=== PATIENT | male | born 1940 | race Hispanic/Latino ===

== ENCOUNTER 2017-02-07 13:17 | Observation (INO) | payer MEDICARE, BC ==
[2017-02-07 13:32] VITALS: BMI 24.8
--- NOTE | 2017-02-07 14:07 | ED PDOC ---
Arrival/HPI - General Chief Complaint: Chest Pain Time Seen by Provider: 02/07/17 13:40 Historian: Patient - History of Present Illness Narrative History of Present Illness (Text): 02/07/17 14:03 A 77 year old male with hypertension on Metoprolol, CAD with 3 stents, [place] and acid reflux on Protonix, presents to the emergency department complaining of chest heaviness since 07:00 this morning. Patient reports he woke up with the pain and has been experiencing intermittently since. Patient denies any fever, nausea, vomiting, diarrhea, abdominal pain, shortness of breath or any other complaints. Patient regularly takes Aspirin. PMD: Dr. Shearer Echocardiograph Tech: Dr. Whitlock Time/Duration: Other (07:00 this morning) Symptom Course: Unchanged Quality: Other Context: Home Past Medical History - Provider Review Nursing Documentation Reviewed: Yes - Past History Past History: No Previous - Infectious Disease Hx of Infectious Diseases: None - Tetanus Immunization Tetanus Immunization: Unknown - Cardiac Hx Hypertension: Yes Hx Pacemaker: No - Pulmonary Hx Respiratory Disorders: No - Neurological Hx Paralysis: No - HEENT Hx HEENT Disorder: No - Renal Hx Renal Disorder: No - Endocrine/Metabolic Hx Endocrine Disorders: No - Hematological/Oncological Hx Blood Transfusions: No Hx Blood Transfusion Reaction: No - Integumentary Hx Dermatological Disorder: No Other/Comment: dry skin patches b/l legs, scratch fan lle - Musculoskeletal/Rheumatological Hx Musculoskeletal Disorders: Yes (PAST HX BULGING DISC,HERNIATED DISC) - Gastrointestinal Hx Gastrointestinal Disorders: Yes Hx Diverticulitis: Yes Hx Gastroesophageal Reflux: Yes Other/Comment: polyp removed pt does not know from where - Genitourinary/Gynecological Hx Genitourinary Disorders: No - Psychiatric Hx Emotional Abuse: No Hx Physical Abuse: No Hx Substance Use: No - Surgical History Hx Appendectomy: Yes Hx Cardiac Catheterization: Yes Hx Cholecystectomy: Yes Hx Coronary Stent: Yes (x 3) - Anesthesia Hx Anesthesia Reactions: No Hx Malignant Hyperthermia: No - Suicidal Assessment Feels Threatened In Home Enviroment: No Family/Social History - Physician Review Nursing Documentation Reviewed: Yes Family/Social History: No Known Family HX Smoking Status: Never Smoked Hx Alcohol Use: No Hx Substance Use: No Hx Substance Use Treatment: No Allergies/Home Meds Allergies/Adverse Reactions: Allergies pantoprazole sodium [From Protonix] Allergy (Verified 02/07/17 13:31) ANAPHYLAXIS Home Medications: Home Meds Medication Instructions Recorded Confirmed Alprazolam [Xanax] 1 mg PO TID 05/01/12 02/07/17 Aspirin [Aspir 81] 81 mg PO DAILY 05/01/12 02/07/17 Atorvastatin [Lipitor] 10 mg PO HS 05/01/12 02/07/17 Metoprolol Tartrate 50 mg PO BID 08/08/16 02/07/17 Sucralfate [Carafate] 1 gm PO TID 08/08/16 02/07/17 Review of Systems - Physician Review All systems were reviewed & negative as marked: Yes - Review of Systems Constitutional: absent: Fevers Respiratory: absent: SOB Cardiovascular: Chest Pain (Chest heaviness) Gastrointestinal: absent: Abdominal Pain, Diarrhea, Nausea, Vomiting Physical Exam Vital Signs Temp Pulse Resp BP Pulse Ox 02/07/17 18:50 71 16 174/91 H 98 02/07/17 16:30 60 15 162/81 H 97 02/07/17 13:29 97.3 F L 68 18 132/88 98 Temperature: Afebrile Blood Pressure: Normal Pulse: Regular Respiratory Rate: Normal Appearance: Positive for: Well-Appearing, Non-Toxic, Comfortable Pain Distress: None Mental Status: Positive for: Alert and Oriented X 3 - Systems Exam Head: Present: Atraumatic, Normocephalic Pupils: Present: PERRL Extroacular Muscles: Present: EOMI Conjunctiva: Present: Normal Mouth: Present: Moist Mucous Membranes Neck: Present: Normal Range of Motion Respiratory/Chest: Present: Clear to Auscultation, Good Air Exchange. No: Respiratory Distress, Accessory Muscle Use Cardiovascular: Present: Regular Rate and Rhythm, Normal S1, S2. No: Murmurs Abdomen: Present: Normal Bowel Sounds. No: Tenderness, Distention, Peritoneal Signs Back: Present: Normal Inspection Upper Extremity: Present: Normal Inspection. No: Cyanosis, Edema Lower Extremity: Present: Normal Inspection. No: Edema Neurological: Present: GCS=15, CN II-XII Intact, Speech Normal Skin: Present: Warm, Dry, Normal Color. No: Rashes Psychiatric: Present: Alert, Oriented x 3, Normal Insight, Normal Concentration Medical Decision Making ED Course and Treatment: 02/07/17 14:03 Impression: A 77 year old male with chest heaviness. Patient denies any nausea, vomiting, shortness of breath or any other complaints. Plan: -- Chest xray -- EKG -- Labs -- Urinalysis -- Aspirin -- Reassess and disposition pt took 81 asa at home, given additional 81 here Progress Notes: EKG shows NSR at 77 BPM with left anterior fascicular block, RBBB, with no changes from prior on 08/2016. Interpreted by me. Report Date : 02/07/2017 14:49:18 Procedure: Chest xray Dictator : Olga Mckenna V. IMPRESSION: No active disease. 02/07/17 15:37 Labs reviewed, negative troponin. 02/07/17 15:49 Dr. Shearer paged. Awaiting call back. 02/07/17 16:07 Patient reports nausea. Repeat EKG performed which is unchanged from prior. 02/07/17 16:[address] Shearer, who accepts patient to his service. Request Dr. Kat or Dr. Whitlock for cardiac consult. Dr kat aware. 02/07/17 20:04 02/07/17 20:04 - Lab Interpretations Lab Results: 02/07/17 13:50 02/07/17 13:50 Lab Results 02/07/17 13:50: WBC 6.8, RBC 4.68, Hgb 15.2, Hct 43.0, MCV 91.9, MCH 32.5, MCHC 35.3, RDW 12.9, Plt Count 168, MPV 9.7, Gran % 51.0, Lymph % (Auto) 34.5, [place] % (Auto) 10.3 H, Eos % (Auto) 3.8, Baso % (Auto) 0.4, Gran # 3.48, Lymph # 2.4, [place] # 0.7 H, Eos # 0.3, Baso # 0.03, Sodium 131 L, Potassium 4.1, Chloride 96 L , Carbon Dioxide 28, Anion Gap 11, BUN 15, Creatinine 0.6, Est GFR ( Amer ) > 60, Est GFR (Non-Af Amer) > 60, Random Glucose 117 H, Calcium 9.5, Total Bilirubin 0.5, AST 29, ALT 27, Alkaline Phosphatase 51, Lactate Dehydrogenase 449, Total Creatine Kinase 123, Troponin I < 0.01, Total Protein 7.1, Albumin 3.9, Globulin 3.2, Albumin/Globulin Ratio 1.2, Urine Color Yellow, Urine Appearance Clear, Urine pH 7.0, Ur Specific [place] 1.015, Urine Protein Negative, Urine Glucose (UA) Negative, Urine Ketones Negative, Urine Blood Trace -intact H, Urine Nitrate Negative, Urine Bilirubin Negative, Urine Urobilinogen 0.2, Ur Leukocyte Esterase Negative, Urine RBC 0 - 2, Urine WBC Negative I have reviewed the lab results: Yes - RAD Interpretation Radiology Orders: 02/07/17 14:04 CHEST PORTABLE [RAD] Stat - Medication Orders Current Medication Orders: Discontinued Medications Aspirin (Ecotrin) 81 mg PO STAT STA Stop: 02/07/17 14:05 Last Admin: 02/07/17 14:38 Dose: 81 MG Ondansetron HCl (Zofran Inj) 4 mg IV ONCE ONE Stop: 02/07/17 16:41 Last Admin: 02/07/17 16:58 Dose: 4 MG eMAR Start Stop Document 02/07/17 16:58 MD (Rec: 02/07/17 16:58 [facility] [id number] Intravenous Solution Start Date 02/07/17 Start Time 16:58 End Date 02/07/17 End time 17:00 Total Infusion Time 2 - Scribe Statement The provider has reviewed the documentation as recorded by the Janine Montes Provider Scribe Attestation: All medical record entries made by the Scribe were at my direction and personally dictated by me. I have reviewed the chart and agree that the record accurately reflects my personal performance of the history, physical exam, medical decision making, and the department course for this patient. I have also personally directed, reviewed, and agree with the discharge instructions and disposition. Disposition/Present on Arrival - Present on Arrival Any Indicators Present on Arrival: No History of DVT/PE: No History of Uncontrolled Diabetes: No Urinary Catheter: No History of Decub. Ulcer: No History Surgical Site Infection Following: None - Disposition Have Diagnosis and Disposition been Completed?: Yes Diagnosis: Chest pain Disposition: HOSPITALIZED Disposition Time: 15:00 Patient Plan: Observation Patient Problems: Current Active Problems Problem Status Diagnosed Chest pain Acute Condition: STABLE
[2017-02-07 14:16] LABS: ADD MANUAL DIFF? NO
[2017-02-07 14:20] LABS: BASO # 0.03 K/mm3 (0.0-2.0); BASO % 0.4 % (0.0-3.0); EOS # 0.3 (0.0-0.7); EOS % 3.8 % (1.5-5.0); GRAN # 3.48 (1.4-6.5); LYMPH # 2.4 (1.2-3.4); LYMPH % 34.5 % (22.0-35.0); MEAN CELL VOLUME 91.9 fL (80.0-105.0); MEAN CORPUSCULAR HEMOGLOBIN 32.5 pg (25.0-35.0); MEAN CORPUSCULAR HGB CONC 35.3 g/dl (31.0-37.0); MEAN PLATELET VOLUME 9.7 fl (7.0-11.0); MONO # 0.7 (0.1-0.6); MONO % 10.3 % (1.0-6.0); PLATELET COUNT 168 10^3/uL (120.0-450.0); RED CELL DISTRIBUTION WIDTH 12.9 % (11.5-14.5); WHITE BLOOD COUNT 6.8 10^3/ul (4.5-11.0)
[2017-02-07 14:31] LABS: ALB/GLOB RATIO 1.2 (1.1-1.8); ALKALINE PHOSPHATASE 51 U/L (38-133); ALT/SGPT 27 U/L (7-56); AST/SGOT 29 U/L (15-59); BILIRUBIN,TOTAL 0.5 mg/dL (0.2-1.3); BLOOD UREA NITROGEN 15 mg/dL (7-21); CALCIUM 9.5 mg/dL (8.4-10.5); CARBON DIOXIDE 28 mmol/L (21-33); CHLORIDE 96 mmol/L (98-107); GFR AFRICAN-AMERICAN > 60; GLUCOSE,RANDOM 117 mg/dL (70-110); POTASSIUM 4.1 mmol/L (3.6-5.0); SODIUM 131 mmol/L (132-148); TOTAL PROTEIN 7.1 g/dL (5.8-8.3)
[2017-02-07 14:43] LABS: TROPONIN I < 0.01 ng/mL
--- NOTE | 2017-02-07 14:50 | RAD ---
HISTORY: chest pain COMPARISON: 08/19/2016 FINDINGS: LUNGS: No active pulmonary disease. PLEURA: No significant pleural effusion identified, no pneumothorax apparent. CARDIOVASCULAR: There is a prominence to the right hilum not significantly changed allowing for differences in rotation. Prominent ascending aorta is believe most likely. Aortic there are not calcification OSSEOUS STRUCTURES: No significant abnormalities. VISUALIZED UPPER ABDOMEN: Normal. OTHER FINDINGS: EKG leads in place IMPRESSION: No active disease.
[2017-02-07 15:37] LABS: URINE APPEARANCE CLEAR (CLEAR); URINE BILIRUBIN NEGATIVE (NEGATIVE); URINE BLOOD TRACE-INTACT (NEGATIVE); URINE COLOR YELLOW (YELLOW); URINE GLUCOSE (UA) NEGATIVE (NEGATIVE); URINE KETONE NEGATIVE (NEGATIVE); URINE LEUKOCYTE ESTERASE NEGATIVE Leu/uL (NEGATIVE); URINE PROTEIN NEGATIVE mg/dL (<30 mg/dL); URINE UROBILINOGEN 0.2 E.U./dL (<1 E.U./dL)
[2017-02-07 15:42] LABS: URINE RBC 0 - 2 /hpf (0-2); URINE WBC NEGATIVE /hpf (0-6)
--- NOTE | 2017-02-07 19:51 | CARD ---
APPROVED REPORT EKG Measurement Heart [id number] <Conclusion> Normal sinus rhythm Right bundle branch block Left anterior fascicular block Bifascicular block Voltage criteria for left ventricular hypertrophy Cannot rule out Septal infarct, age undetermined Abnormal ECG
[2017-02-07] MEDS ORDERED: Oxycodone/Acetaminophen 5/325 mg Tab PO PRN (20:23)
[2017-02-08] MEDS ORDERED: Pantoprazole 40 mg EC Tab PO SCH (07:30)
[2017-02-08 07:56] VITALS: O2SAT 97
[2017-02-08 09:29] LABS: CHOLESTEROL 143 mg/dL (130-200)
[2017-02-08 09:37] LABS: TROPONIN I < 0.01 ng/mL
[2017-02-08] MEDS ORDERED: Sucralfate 1 gm/10 ml Oral Susp UD PO SCH (10:00)
--- NOTE | 2017-02-08 11:40 | HP ---
CHIEF COMPLAINT: Chest pain. HISTORY OF PRESENT ILLNESS: This patient is a very neurotic, anxious, 77-year-old male with hyperten sive coronary artery disease with [address] and a history of a myocardial infarction and acid reflux. He presents today with chest heaviness since early this morning after awakening and has bee n intermittent since that time. He denies shortness of breath, abdominal pain, nausea, vomiting, etc . PAST MEDICAL HISTORY: Previous surgeries include cholecystectomy, appendectomy and lumbar laminectom y. Cardiac stents (3). REVIEW OF SYSTEMS: Very significant anxiety neurosis with 1 mg Xanax taken between 3 and 5 times a d ay and Percocet once to twice daily as needed. Significant gastroesophageal reflux with a questionable history of PROTONIX ALLERGY. It is not clear if the patient has been taking this medicine for the past week because the insurance company is no l onger covering his proton pump inhibitor. There has been a past history on endoscopy of evidence of gastric portal elevated pressures. MEDICATIONS: Xanax 1 mg 3 times a day, aspirin 81, Lipitor 10, Toprol 50 b.i.d., Carafate 1 t.i.d. a nd Prevacid supposedly taking, but not mentioned recently. SOCIAL HISTORY: Denies tobacco, alcohol or intravenous drug use. PHYSICAL EXAMINATION: VITAL SIGNS: Blood pressure is elevated at 170/90. GENERAL: The examination is essentially unremarkable. CHEST: There is no chest wall tenderness. There are no gallops, rubs, murmurs. ABDOMEN: There is an absence of significant abdominal guarding or rigidity and there is only minimal tenderness in the right upper quadrant of the abdomen. IMPRESSION UPON ADMISSION: 1. Atypical chest pain, rule out ischemic heart disease versus gastroesophageal reflux. 2. Hypertensive coronary artery disease 3. Gastroesophageal reflux. 4. Severe anxiety neurosis. 5. Hyperlipidemia. 6. Spinal stenosis. RECOMMENDATIONS UPON ADMISSION: Observation with serial cardiac enzymes, EKGs (unchanged since last examination) and consultation with Dr. Whitlock from the cardiology department. This dictation will be electronically signed without being read. Mark Shearer MD cc: [phone] TT: 02/08/2017 11:40:02 en
--- NOTE | 2017-02-08 11:58 | CP.PCM.PCO ---
Physician Communication Note - Physician Communication Note Physician Communication Note: D/C Home with [id number] by Ins Co)
[2017-02-08 12:57] VITALS: BP 164/95; PULSE 59; RESP 20; TEMP 97.9
--- NOTE | 2017-02-08 14:58 | CON ---
DATE: 02/08/2017 REASON FOR CONSULTATION: Chest pain, rule out CAD, rule out [id number] myocardial infarction, co ronary artery disease, status post multiple stents. BRIEF CLINICAL HISTORY: This is a 77-year-old male with past medical history significant for coronar y artery disease status post multiple code STEMIs, status post multiple stents. Last cath was in 2013 when the patient was admitted with chest pain and ST elevation, chronic ST elevation in V2, V3. Came in with complaint of a very funny sensation, just not feeling well. Came to the Emergency Room . The patient was supposed to take Prilosec when he had bad gastritis, but did not get prescription filled. But denies any chest pain, shortness of breath, any palpitation. PAST MEDICAL HISTORY: Significant for coronary artery disease, status multiple stents in the past. Last PTCA 11/10/2011. Last cardiac catheterization 04/06/2014, medical treatment recommended. Histo ry of severe gastroesophageal reflux, very bad. PREVIOUS CARDIAC WORKUP: As mentioned, multiple stents; the last stent 11/10/2011. Last cardiac cat heterization on 04/06/2014 at [facility]. Chronically elevated V2, V3 ST elevation. Las t echo in [facility] 03/08/2014: Ejection fraction 55%. Last echo in office was essentially o lazaro. The patient has also PAD, also PTCA of right femoral artery 06/11/____ after the patient had ac cess for the catheterization at [facility]. History of spinal stenosis, history of gastroesophageal reflux. SOCIAL HISTORY: Denies smoking. Denies any history of alcohol abuse. CURRENT MEDICATIONS: The patient is taking at home oxycodone, sucralfate, metoprolol, atorvastatin, aspirin, Xanax. REVIEW OF SYSTEMS: As per HPI. PHYSICAL EXAMINATION: VITAL SIGNS: Temperature afebrile, heart rate 89, blood pressure 169/90. HEENT: PERRLA. Extraocular muscles intact. NECK: Supple. No carotid bruits. No thyromegaly. CHEST: Clear to auscultation. HEART: S1, S2 regular. ABDOMEN: Soft. EXTREMITIES: Clubbing and cyanosis negative. BLOOD WORKUP: WBC 7.____, hemoglobin 15.____, hematocrit 44.2, platelet count 198. Chemistry shows sodium 129, potassium 4.____, chloride ____, carbon dioxide 27, anion gap of ____, BUN 12, creatinine 0.6. Troponin 0.01. IMPRESSION: Atypical chest pain; hyponatremia, possibly ____ intravenous line blood drawn; gastroeso phageal reflux disease; coronary artery disease, status post multiple catheterizations, status post l ast stent in 2010, status post multiple catheterizations, after that medical treatment; hypertension, hyperlipidemia, anxiety disorder. RECOMMENDATION: Follow up second set of troponin, will repeat. If SMA-7 is stable, possibly dischar ge home. Will discuss with Dr. Shearer. Thank you, Dr. Shearer, for providing the opportunity in taking care of this patient. Harley Whitlock MD cc: [id number] TT: 02/08/2017 12:04:57 Confirmation # [id number] Dictation # [id number] 02/08/2017 13:57:27
== END 2017-02-08 14:30 | disposition home or self-care (01) ==
LOC: ED 13:17 → ERH 16:17 → 2RSO 19:23
PROVIDERS: ADMIT Surgery; ATTEND Surgery
DX: R07.89 Other chest pain (principal); E87.1 Hypo-osmolality and hyponatremia; K21.9 Gastro-esophageal reflux disease without esophagitis; F41.9 Anxiety disorder, unspecified; I25.10 Atherosclerotic heart disease of native coronary artery without angina pectoris; I10 Essential (primary) hypertension; E78.5 Hyperlipidemia, unspecified; M48.00 Spinal stenosis, site unspecified; Z79.82 Long term (current) use of aspirin; Z95.5 Presence of coronary angioplasty implant and graft
CPT/HCPCS: 36415; 71010; 80053; 80061; 81001; 82550; 83615; 84443; 84484; 85025; 93005; 99285; G0378; J2405

== ENCOUNTER 2017-03-06 18:53 | Inpatient (IN) | payer MEDICARE, BC ==
[2017-03-06] MEDS ORDERED: Metoprolol 1 mg/ml Inj IVP STA (19:10)
[2017-03-06] MEDS ORDERED: Aspirin 325 mg EC Tablets PO STA (19:12)
--- NOTE | 2017-03-06 19:17 | ED PDOC ---
Arrival/HPI - General Chief Complaint: Chest Pain Time Seen by Provider: 03/06/17 18:55 Historian: Patient - History of Present Illness Narrative History of Present Illness (Text): 03/06/17 19:13 A 77 year old male, whose past medical history includes hypertension, CAD with multiple stents, anxiety and hyperlipidemia, presents to the emergency department complaining of right sided chest pain that radiates to the left side for the past 2.5 hours. Patient describes it as a severe pain that is more intense than cardiac chest pain but is unable to characterize it. Patient reports that pain is not worsened with movement or breathing. Patient denies any cough, shortness of breath, abdominal pain or any other complaints at this time. Time/Duration: 1-3 hours Symptom Onset: Sudden Symptom Course: Unchanged Quality: Other (severe pain) Activities at Onset: Rest Context: Home Associated Symptoms (Text): none Past Medical History - Provider Review Nursing Documentation Reviewed: Yes - Past History Past History: No Previous - Infectious Disease Hx of Infectious Diseases: None - Tetanus Immunization Tetanus Immunization: Unknown - Cardiac Hx Hypertension: Yes - Pulmonary Hx Respiratory Disorders: No - Neurological Hx Paralysis: No - HEENT Hx HEENT Disorder: No - Renal Hx Renal Disorder: No - Endocrine/Metabolic Hx Endocrine Disorders: No - Hematological/Oncological Hx Blood Transfusions: No Hx Blood Transfusion Reaction: No - Integumentary Hx Dermatological Disorder: No Other/Comment: dry skin patches b/l legs, scratch fan lle - Musculoskeletal/Rheumatological Hx Musculoskeletal Disorders: Yes (PAST HX BULGING DISC,HERNIATED DISC) - Gastrointestinal Hx Gastrointestinal Disorders: Yes Hx Diverticulitis: Yes Hx Gastroesophageal Reflux: Yes Other/Comment: polyp removed pt does not know from where - Genitourinary/Gynecological Hx Genitourinary Disorders: No - Psychiatric Hx Emotional Abuse: No Hx Physical Abuse: No Hx Substance Use: No - Surgical History Hx Appendectomy: Yes Hx Cardiac Catheterization: Yes Hx Cholecystectomy: Yes Hx Coronary Stent: Yes (x 3) - Anesthesia Hx Anesthesia Reactions: No Hx Malignant Hyperthermia: No - Suicidal Assessment Feels Threatened In Home Enviroment: No Family/Social History - Physician Review Nursing Documentation Reviewed: Yes Family/Social History: No Known Family HX Smoking Status: Never Smoked Hx Alcohol Use: No Hx Substance Use: No Hx Substance Use Treatment: No Allergies/Home Meds Allergies/Adverse Reactions: Allergies pantoprazole sodium [From Protonix] Allergy (Verified 02/07/17 13:31) ANAPHYLAXIS Home Medications: Home Meds Medication Instructions Recorded Confirmed Alprazolam [Xanax] 1 mg PO TID 05/01/12 03/06/17 Aspirin [Aspir 81] 81 mg PO DAILY 05/01/12 03/06/17 Atorvastatin [Lipitor] 10 mg PO HS 05/01/12 03/06/17 Metoprolol Tartrate 50 mg PO BID 08/08/16 03/06/17 Sucralfate [Carafate] 1 gm PO TID 08/08/16 03/06/17 oxyCODONE/Acetaminophen [Percocet 1 tab PO DAILY PRN 02/07/17 03/06/17 5/325 mg Tab] Omeprazole Magnesium [Prilosec Otc] 40 mg PO DAILY 03/06/17 03/06/17 Review of Systems - Physician Review All systems were reviewed & negative as marked: Yes - Review of Systems Constitutional: absent: Fevers Eyes: Normal ENT: absent: Sore Throat, Rhinorrhea Respiratory: absent: SOB, Cough Cardiovascular: Chest Pain Gastrointestinal: absent: Abdominal Pain, Nausea, Vomiting Genitourinary Male: absent: Dysuria Musculoskeletal: absent: Back Pain Skin: absent: Rash Neurological: absent: Headache, Dizziness Endocrine: absent: Diaphoresis Physical Exam Vital Signs Reviewed: Yes Vital Signs Temp Pulse Resp BP Pulse Ox 03/06/17 21:25 62 18 162/82 H 95 03/06/17 20:15 67 18 167/76 H 95 03/06/17 19:45 76 18 200/104 H 98 03/06/17 19:05 98.7 F 83 24 193/104 H 98 03/06/17 18:53 97.3 F L 79 18 193/104 H 97 Temperature: Afebrile Blood Pressure: Hypertensive Pulse: Regular Respiratory Rate: Normal Appearance: Positive for: Non-Toxic Pain Distress: Moderate Mental Status: Positive for: Alert and Oriented X 3 - Systems Exam Head: Present: Atraumatic, Normocephalic Pupils: Present: PERRL Conjunctiva: Present: Normal Mouth: Present: Moist Mucous Membranes Pharnyx: Present: Normal. No: ERYTHEMA, EXUDATE Neck: Present: Normal Range of Motion Respiratory/Chest: Present: Clear to Auscultation, Good Air Exchange. No: Respiratory Distress, Accessory Muscle Use Cardiovascular: Present: Regular Rate and Rhythm, Normal S1, S2. No: Murmurs Abdomen: Present: Normal Bowel Sounds. No: Tenderness, Distention, Peritoneal Signs Upper Extremity: Present: Normal Inspection. No: Cyanosis, Edema Lower Extremity: Present: Normal Inspection. No: Edema Neurological: Present: GCS=15, CN II-XII Intact, Speech Normal Skin: Present: Warm, Dry, Normal Color. No: Rashes Psychiatric: Present: Alert, Oriented x 3, Normal Insight, Normal Concentration Medical Decision Making ED Course and Treatment: 03/06/17 19:21 Impression: 77 year old male with radiating right sided chest pain to the left side. Differential Diagnosis include but are not limited to: ACS vs. PE vs. Anxiety Plan: -- EKG -- Chest Xray -- Urinalysis -- Labs -- Metoprolol, Nitroglycerin -- Reassess and disposition Prior Visits: Notes and results from previous visits were reviewed. Patient was reported to the emergency department on 02/07/17 for evaluation of chest pain. Progress Notes: EKG: Ordered, reviewed, and independently interpreted the EKG. Rate : 81 BPM Rhythm : NSR Interpretation : PVCs; RBBB; left axis deviation; left anterior fascicular block ; LVH by voltage; no new ST/T changes; QRS 164 Comparison : Unchanged from 02/07/17 03/06/17 23:08 CTA Chest: FINDINGS: Limitations: The examination is limited by respiratory motion. Pulmonary arteries: No evidence of pulmonary embolism. Aorta: Cardiac motion limits assessment of the ascending aorta. The aorta is otherwise unremarkable. No thoracic aortic aneurysm. 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 Lungs: There is heterogeneous attenuation of the pulmonary parenchyma, consistent with air trapping. No focal pneumonia. No mass. Pleural space: No significant pleural effusion. No pneumothorax. Heart: No cardiomegaly or pericardial effusion. Atherosclerotic calcifications affect the coronary arteries. Bones/joints: No acute fracture. Soft tissues: Unremarkable. Lymph nodes: No adenopathy. Upper abdomen: No acute findings in the upper abdomen. IMPRESSION: Motion limited study without pulmonary embolism seen Patient with noted history of chest pain; ekg essentially with no new changes; initial BP was elevated. Patient given nitro with no cp relief and lopressor with heart rate improvement and BP with mild improvement. CP continuing - given morphine without relief. Added clonazepam with mild relief. D-dimer was elevated as was troponin of 0.5; started on heparin for ACS/NSTEMI/USA. Given persistence of pain, discussed with Dr. Alegria, covering Dr. Whitlock, who recommended Tridil drip, which is being started. CTA of the chest showing no PE. Case has been discussed with Dr. Mark Shearer for admission to his service. Case discussed also with Dr. Zambrano for ICU consult. - Critical Care Critical Care Minutes: 45 minutes - Lab Interpretations Lab Results: 03/06/17 19:59 03/06/17 21:20 Lab Results 03/06/17 21:20: Sodium 128 L, Potassium 3.8, Chloride 92 L, Carbon Dioxide 28, Anion Gap 12, BUN 11, Creatinine 0.5, Est GFR ( Amer) > 60, Est GFR (Non- Af Amer) > 60, Random Glucose 106, Calcium 8.8, Magnesium 2.0, Total Bilirubin 0.7, AST 43, ALT 40, Alkaline Phosphatase 59, Lactate Dehydrogenase 490, Total Creatine Kinase 260 H, CK-MB (CK-2) 13.4 H, CK-MB (CK-2) % 5.2 H, Troponin I 0.50 H* D, NT-Pro-B Natriuret Pep 192, Total Protein 7.1, Albumin 3.8, Globulin 3.3, Albumin/Globulin Ratio 1.2, Lipase 69 03/06/17 19:59: WBC 7.3, RBC 4.87, Hgb 16.0, Hct 44.2, MCV 90.8, MCH 32.9, MCHC 36.2, RDW 12.5, Plt Count 158, MPV 9.2, Gran % 53.8, Lymph % (Auto) 26.6, Camp % (Auto) 14.9 H, Eos % (Auto) 4.6, Baso % (Auto) 0.1, Gran # 3.90, Lymph # 1.9, Camp # 1.1 H, Eos # 0.3, Baso # 0.01, PT 11.7, INR 1.08, APTT 26.4, D-Dimer, Quantitative 0.93 H I have reviewed the lab results: Yes - RAD Interpretation Radiology Orders: 03/06/17 19:08 CHEST PORTABLE [RAD] Stat 03/06/17 20:20 ANGIO CHEST PE PROTOCOL [CT] Stat - EKG Interpretation Interpreted by ED Physician: Yes Type: 12 lead EKG - Medication Orders Current Medication Orders: Heparin Sodium/Sodium Chloride (Heparin 90889 Units/250ml 1/2 Normal Saline) 250 mls @ 9.689 mls/hr IV .Q24H RACQUEL; 12 UNITS/KG/HR PRN Reason: Protocol Nitroglycerin/Dextrose (Nitroglycerin 50 Mg/250 Ml D5w) 250 mls @ 1.5 mls/hr IV .Q24H PRN; Protocol; 5 MCG/MIN PRN Reason: Chest Pain Discontinued Medications Aspirin (Ecotrin) 325 mg PO STAT STA Stop: 03/06/17 19:13 Last Admin: 03/06/17 19:45 Dose: Comments: Pt took 162 [employer] DIRECT[employer] in ER. Dr Kruse aware. Clonazepam (Klonopin) 1 mg PO STAT STA PRN Reason: Protocol Stop: 03/06/17 20:22 Last Admin: 03/06/17 21:07 Dose: 1 MG Behavioural Document 03/06/17 21:07 KK (Rec: 03/06/17 21:08 [id number]) Maintenance Maintenance Dose No Nonmedicinal Nonmedicinal Interventions Redirect Therapeutic Communication Comment Pt reports anxiety regarding CP. Behavior Behavior for Medication: Anxiety Heparin Sodium (Porcine) (Heparin) 5,700 units IV ONCE ONE PRN Reason: Protocol Stop: 03/06/17 22:00 Iodixanol (Visipaque 320 Mg/Ml 100 Ml) Confirm Administered Dose 100 ml IV .STK- MED ONE Stop: 03/06/17 22:02 Metoprolol Tartrate (Lopressor) 5 mg IVP STAT STA Stop: 03/06/17 19:11 Last Admin: 03/06/17 19:45 Dose: 5 MG MAR Pulse and Blood Pressure Document 03/06/17 19:45 KK (Rec: 03/06/17 20:03 [id number]) Pulse Pulse Rate (60-90 beats/min) 76 Blood Pressure Blood Pressure (100/60-150/90 mm Hg) 200/104 IVP Administration Document 03/06/17 19:45 KK (Rec: 03/06/17 20:03 [id number]) Charges for Administration # of IVP Administrations 1 Metoprolol Tartrate (Lopressor) 50 mg PO STAT STA Stop: 03/06/17 19:11 Last Admin: 03/06/17 19:45 Dose: 50 MG MAR Pulse and Blood Pressure Document 03/06/17 19:45 KKL (Rec: 03/06/17 20:04 [id number] Pulse Pulse Rate (60-90 beats/min) 76 Blood Pressure Blood Pressure (100/60-150/90 mm Hg) 200/104 Morphine Sulfate (Morphine) 2 mg IVP STAT STA Stop: 03/06/17 20:44 Last Admin: 03/06/17 21:08 Dose: 2 MG MAR Pain Assessment Document 03/06/17 21:08 [facility] (Rec: 03/06/17 21:10 [id number]) Pain Reassessment Is this a pain reassessment? Yes Sleep Is patient sleeping during reassessment? No Presence of Pain Presence of Pain Yes Pain Scale Used Pain Scale Used Numeric Location Left, Right or Bilateral Left Pain Location Body Site Shoulder Chest Description Description Constant Intensity of Pain at present 9 Acceptable Level of Pain 4 Radiation Location left shoulder Pain Behavior Guarding Rubbing Site Aggravating Factors ADL's Changing Position Exercise/Activity Alleviating Factors/Management Medication Techniques IVP Administration Document 03/06/17 21:08 KK (Rec: 03/06/17 21:10 [id number]) Charges for Administration # of IVP Administrations 1 Nitroglycerin (Nitrostat Sl Tab) 0.4 mg SL STAT STA Stop: 03/06/17 19:09 Last Admin: 03/06/17 19:45 Dose: 0.4 MG - Scribe Statement The provider has reviewed the documentation as recorded by the Scribbilly Michael All medical record entries made by the Mylesibbilly were at my direction and personally dictated by me. I have reviewed the chart and agree that the record accurately reflects my personal performance of the history, physical exam, medical decision making, and the department course for this patient. I have also personally directed, reviewed, and agree with the discharge instructions and disposition. Disposition/Present on Arrival - Present on Arrival Any Indicators Present on Arrival: No History of DVT/PE: No History of Uncontrolled Diabetes: No Urinary Catheter: No History of Decub. Ulcer: No History Surgical Site Infection Following: None - Disposition Have Diagnosis and Disposition been Completed?: Yes Diagnosis: Acute coronary syndrome, Hyponatremia Disposition: HOSPITALIZED Disposition Time: 23:00 Patient Plan: Admission, ICU Condition: CRITICAL
[2017-03-06 20:00] LABS: ADD MANUAL DIFF? NO
[2017-03-06 20:04] LABS: BASO # 0.01 K/mm3 (0.0-2.0); BASO % 0.1 % (0.0-3.0); EOS # 0.3 (0.0-0.7); EOS % 4.6 % (1.5-5.0); GRAN % 53.8 % (50.0-68.0); HEMATOCRIT 44.2 % (42.0-52.0); LYMPH # 1.9 (1.2-3.4); LYMPH % 26.6 % (22.0-35.0); MEAN CELL VOLUME 90.8 fL (80.0-105.0); MEAN CORPUSCULAR HEMOGLOBIN 32.9 pg (25.0-35.0); MEAN CORPUSCULAR HGB CONC 36.2 g/dl (31.0-37.0); MEAN PLATELET VOLUME 9.2 fl (7.0-11.0); MONO # 1.1 (0.1-0.6); MONO % 14.9 % (1.0-6.0); PLATELET COUNT 158 10^3/uL (120.0-450.0); RED CELL DISTRIBUTION WIDTH 12.5 % (11.5-14.5); WHITE BLOOD COUNT 7.3 10^3/ul (4.5-11.0)
[2017-03-06 20:18] LABS: INR 1.08 (0.93-1.08); PARTIAL THROMBOPLASTIN TIME 26.4 Seconds (23.7-30.8)
[2017-03-06 20:19] LABS: D DIMER 0.93 mg/L FEU (0-0.50)
[2017-03-06] MEDS ORDERED: Morphine 2 mg/ml ISec IVP STA (20:43)
[2017-03-06 21:44] LABS: ALB/GLOB RATIO 1.2 (1.1-1.8); ALKALINE PHOSPHATASE 59 U/L (38-133); ALT/SGPT 40 U/L (7-56); AST/SGOT 43 U/L (15-59); BILIRUBIN,TOTAL 0.7 mg/dL (0.2-1.3); BLOOD UREA NITROGEN 11 mg/dL (7-21); CALCIUM 8.8 mg/dL (8.4-10.5); CARBON DIOXIDE 28 mmol/L (21-33); CHLORIDE 92 mmol/L (98-107); GFR AFRICAN-AMERICAN > 60; GLUCOSE,RANDOM 106 mg/dL (70-110); LIPASE 69 U/L (23-300); POTASSIUM 3.8 mmol/L (3.6-5.0); SODIUM 128 mmol/L (132-148); TOTAL PROTEIN 7.1 g/dL (5.8-8.3)
[2017-03-06] MEDS ORDERED: Heparin25000 units/250ml 1/2NS 250 ML IV SCH (22:00)
[2017-03-06] MEDS ORDERED: Iodixanol 320 MG/ML 100 ML BOTTLE IV ONE (22:01)
[2017-03-06] MEDS ORDERED: Nitroglycerin 50mg in D5W 250 ML IV PRN (22:40)
--- NOTE | 2017-03-06 23:32 | CP.PCM.CON ---
<Louisa Momin - Last Filed: 03/07/17 00:20> History of Present Illness - History of Present Illness History of Present Illness: ICU Consult note This is a 77Y M with PMH HTN, HLD, severe GERD, and CAD s/p multiple stents who came to the ED with chest pain since this AM. He reports he was sitting at home when he suddenly got R sided chest pain. The pain radiates to his back and is described as a sharp, constant pain. He has never had chest pain this severe in the past. He noticed that over time, it began to radiate to his L side. It did not radiate to his jaw. He denied having palpitations, SOB, n/v/d, numbness/ tingling, fever/chills, headaches or vision changes. Patient was recently here for chest pain last month which was thought to be secondary to acid reflux. He was d/c home with Omeprazole 40mg. In the ED, patient was noted to be hypertensive with SBP of 200 and positive troponin. EKG showed RBBB, L axis deviation, L anterior fasicular block and LVH. CTA was done which showed no evidence of PE. PMH: HTN, HLD, severe GERD, and CAD s/p multiple stents PSH: cardiac stents, cholecystectomy, appendectomy, lumbar spine fusion Home meds: Xanax 1mg TID, ASA 81mg qd, Lipitor 10mg qd, Toprol 50mg BID, Omeprazole 40mg All: Protonix-flushing SH: denies EtOH, drug or tobacco use. Lives with . FH: Sister of DE at age 40. Multiple siblings had cardiac issues. PMD: Dr. Shearer Director Of Business Services: Dr. Whitlock/Dr. Alegria Review of Systems - Review of Systems Review of Systems: As per HPI Past Patient History - Infectious Disease Hx of Infectious Diseases: None - Tetanus Immunizations Tetanus Immunization: Unknown - Past Social History Smoking Status: Never Smoked Alcohol: None Drugs: Denies Home Situation {Lives}: With Family - CARDIAC Hx Hypertension: Yes - PULMONARY Hx Respiratory Disorders: No - NEUROLOGICAL Hx Paralysis: No - HEENT Hx HEENT Problems: No - RENAL Hx Chronic Kidney Disease: No - ENDOCRINE/METABOLIC Hx Endocrine Disorders: No - HEMATOLOGICAL/ONCOLOGICAL Hx Blood Transfusions: No Hx Blood Transfusion Reaction: No - INTEGUMENTARY Hx Dermatological Problems: No Other/Comment: dry skin patches b/l legs, scratch fan lle - MUSCULOSKELETAL/RHEUMATOLOGICAL Hx Musculoskeletal Disorders: Yes (PAST HX BULGING DISC,HERNIATED DISC) - GASTROINTESTINAL Hx Gastrointestinal Disorders: Yes Hx Diverticulitis: Yes Hx Gastroesophageal Reflux: Yes Other/Comment: polyp removed pt does not know from where - GENITOURINARY/GYNECOLOGICAL Hx Genitourinary Disorders: No - PSYCHIATRIC Hx Emotional Abuse: No Hx Physical Abuse: No Hx Substance Use: No - SURGICAL HISTORY Hx Appendectomy: Yes Hx Cardiac Catheterization: Yes Hx Cholecystectomy: Yes Hx Coronary Stent: Yes (x 3) - ANESTHESIA Hx Anesthesia Reactions: No Hx Malignant Hyperthermia: No Meds Allergies/Adverse Reactions: Allergies Allergy/AdvReac Type Severity Reaction Status Date / Time pantoprazole sodium Allergy ANAPHYLAXIS Verified 02/07/17 13:31 [From Protonix] - Medications Medications: Current Medications Heparin Sodium/Sodium Chloride (Heparin 65410 Units/250ml 1/2 Normal Saline) 250 mls @ 9.689 mls/hr IV .Q24H RACQUEL; 12 UNITS/KG/HR PRN Reason: Protocol Nitroglycerin/Dextrose (Nitroglycerin 50 Mg/250 Ml D5w) 250 mls @ 1.5 mls/hr IV .Q24H PRN; Protocol; 5 MCG/MIN PRN Reason: Chest Pain Physical Exam - Constitutional Appears: No Acute Distress - Head Exam Head Exam: ATRAUMATIC, NORMAL INSPECTION, NORMOCEPHALIC - Eye Exam Eye Exam: Normal appearance Pupil Exam: NORMAL ACCOMODATION - ENT Exam ENT Exam: Mucous Membranes Moist - Respiratory Exam Respiratory Exam: Clear to Auscultation Bilateral, NORMAL BREATHING PATTERN. absent: Rales, Rhonchi, Wheezes, Respiratory Distress - Cardiovascular Exam Cardiovascular Exam: REGULAR RHYTHM, +S1, +S2. absent: Tachycardia, Gallop, Rubs, Systolic Murmur - GI/Abdominal Exam GI & Abdominal Exam: Normal Bowel Sounds, Soft. absent: Guarding, Hernia, Rebound, Rigid, Tenderness - Extremities Exam Extremities exam: Positive for: normal inspection. Negative for: calf tenderness, pedal edema - Neurological Exam Neurological exam: Alert, CN II-XII Intact, Oriented x3 - Psychiatric Exam Psychiatric exam: Normal Affect, Normal Mood - Skin Skin Exam: Dry, Intact, Normal Color, Warm Results - Vital Signs Recent Vital Signs: Last Vital Signs Temp 98.7 F 04/18/17 19:05 Pulse 62 03/06/17 21:25 Resp 18 03/06/17 21:25 BP 162/82 H 03/06/17 21:25 Pulse Ox 95 03/06/17 21:25 - Labs Result Diagrams: 03/06/17 19:59 03/06/17 21:20 Labs: Laboratory Results - last 24 hr 03/06/17 03/06/17 19:59 21:20 WBC 7.3 RBC 4.87 Hgb 16.0 Hct 44.2 MCV 90.8 MCH 32.9 MCHC 36.2 RDW 12.5 Plt Count 158 MPV 9.2 Gran % 53.8 Lymph % (Auto) 26.6 Catron % (Auto) 14.9 H Eos % (Auto) 4.6 Baso % (Auto) 0.1 Gran # 3.90 Lymph # 1.9 Catron # 1.1 H Eos # 0.3 Baso # 0.01 PT 11.7 INR 1.08 APTT 26.4 D-Dimer, Quantitative 0.93 H Sodium 128 L Potassium 3.8 Chloride 92 L Carbon Dioxide 28 Anion Gap 12 BUN 11 Creatinine 0.5 Est GFR ( Amer) > 60 Est GFR (Non-Af Amer) > 60 Random Glucose 106 Calcium 8.8 Magnesium 2.0 Total Bilirubin 0.7 AST 43 ALT 40 Alkaline Phosphatase 59 Lactate Dehydrogenase 490 Total Creatine Kinase 260 H CK-MB (CK-2) 13.4 H CK-MB (CK-2) % 5.2 H Troponin I 0.50 H* D NT-Pro-B Natriuret Pep 192 Total Protein 7.1 Albumin 3.8 Globulin 3.3 Albumin/Globulin Ratio 1.2 Lipase 69 Assessment & Plan - Assessment and Plan (Free Text) Assessment: This is a 77Y M with PMH HTN, HLD, severe GERD, and CAD s/p multiple stents admitted for NSTEMI. Plan: Neuro: A&O x 3 Maintain normothermia Pulm: CTA showed no evidence of PE CXR showed no active disease NC on 2L Maintain SpO2>90% CV: EKG showed Troponin 0.5- will repeat x 2 On Heparin Drip On Nitro Drip ASA, Lipitor Hold Toprol Morphine 2mg prn pain Fiorecet prn headache Cardiology-Dr. Kamlesh consulted and notified Cholesterol panel and TSH noted to be normal on last admission (01/2017) Maintain MAP>65 GI: NPO Omeprazole Heme: Hgb stable Continue to monitor CBC ID: Afebrile, no leukocytosis Endo: Maintain euglycemia Psych: Hold Xanax Will restart if pt has anxiety GI ppx: Prilosec DVT ppx: Heparin drip Case seen, reviewed and discussed with attending. Jose Manuel Momin PGY1 - Date & Time Date: 03/07/17 Time: 00:00 <Bulmaro Zambrano Q - Last Filed: 03/07/17 06:39> Meds - Medications Medications: Current Medications Acetaminophen/Butalbital/Caffeine (Fioricet) 1 tab PO Q4H PRN PRN Reason: Headache Alprazolam (Xanax) 1 mg PO TID PRN PRN Reason: Anxiety Last Admin: 03/07/17 05:42 Dose: 1 mg Aspirin (Ecotrin) 81 mg PO DAILY RACQUEL Atorvastatin Calcium (Lipitor) 10 mg PO HS RACQUEL Heparin Sodium/Sodium Chloride (Heparin 31164 Units/250ml 1/2 Normal Saline) 250 mls @ 9.689 mls/hr IV .Q24H RACQUEL; 12 UNITS/KG/HR PRN Reason: Protocol Last Admin: 03/06/17 22:00 Dose: 9.689 mls/hr Nitroglycerin/Dextrose (Nitroglycerin 50 Mg/250 Ml D5w) 250 mls @ 1.5 mls/hr IV .Q24H PRN; Protocol; 5 MCG/MIN PRN Reason: Chest Pain Last Admin: 03/06/17 23:13 Dose: 1.5 mls/hr Morphine Sulfate (Morphine) 2 mg IVP Q4H PRN PRN Reason: Pain, severe (8-10) Last Admin: 03/07/17 00:27 Dose: 2 mg Non-Formulary Medication (Omeprazole Magnesium [Prilosec Otc]) 40 mg PO DAILY RACQUEL Sucralfate (Carafate Tab) 1 gm PO AC RACQUEL Results - Vital Signs Recent Vital Signs: Last Vital Signs Temp 97.9 F 03/07/17 01:51 Pulse 60 03/07/17 04:00 Resp 17 03/07/17 04:00 BP 128/68 03/07/17 04:00 Pulse Ox 97 03/07/17 04:00 - Labs Result Diagrams: 03/06/17 19:59 03/06/17 21:20 Labs: Laboratory Results - last 24 hr 03/07/17 03/07/17 02:55 05:50 APTT 77.7 H* Troponin I 24.60 H* D Attending/Attestation - Attestation I have personally seen and examined this patient.: Yes I have fully participated in the care of the patient.: Yes I have reviewed all pertinent clinical information: Yes Notes (Text): 03/07/17 06:35 I agree with the above mentioned note and exam by Dr. Momin with the addition /exception of the followin77 y/o male with PMHx as listed came to the ED with the complaint of chest pain which radiates towards his back and left side; he was found to have a mild troponin elevation of 0.5 that subsequently has now risen to 24.6. He was treated in the ED with SL NTG with minimal relief thus requiring a tridill drip ; he has also been placed on heparin drip and is likely to go for a cardiac cath later today. He remains in the ICU currently hemodynamically stable; last cardiac cath on file here is from 04/06/14 when the patient was a code STEMI however there was no occlusion found that required intervention; prior to that patient had a cardiac cath with stent placement in October of 2011. All labs and imaging available today have been reviewed case discussed at length with Dr. Kruse in the ED total time of care: 35 minutes
[2017-03-07] MEDS ORDERED: Apap-Butalbital-Caffeine 325-50-40mg Tab PO PRN (00:17)
[2017-03-07] MEDS: Morphine 2 mg/ml ISec IVP PRN ×4 (00:27→21:01)
[2017-03-07] MEDS ORDERED: Morphine 2 mg/ml ISec IM STA (01:54)
[2017-03-07 04:12] VITALS: BMI 24.4
[2017-03-07] MEDS ORDERED: Pneumococcal 23-Valent Vaccine IM ONE (04:12)
--- NOTE | 2017-03-07 07:17 | CP.CCUPN ---
<Marion Pavon - Last Filed: 03/07/17 17:04> CCU Subjective - Physician Review Subjective (Free Text): 03/07/17 07:14 Resting comfortably. CP on R mid-clavicular chest, 4/10, no other radiation, diaphoresis, n/v. Pt wonders where his cane is. Per Dr. Whitlock, Effient 60 once, then 10 daily. PTCA 3pm via R wrist, ok to light breakfast, then NPO. Stop heparin at 1. Change to BB 25 BID Other findings - dry skin patches b/l legs, scratch fan lle - PAST HX BULGING DISC,HERNIATED DISC - polyp removed pt does not know from where 03/07/17 17:04 - Back in ICU s/p cath - L radial entry - GERA on OM and distal RCA - During procedure, that lasted 1.5 hours - 3000 heparin - 2 versed / 100 fentynl - 40 lasix - 200 mcg nitro - No hydralazine - U/O 350cc CCU Objective - Vital Signs / Intake & Output Vital Signs (Last 4 hours): Vital Signs Temp Pulse Resp BP Pulse Ox 03/07/17 06:30 56 L 13 115/58 L 97 03/07/17 06:15 56 L 14 112/58 L 97 03/07/17 06:00 98.0 F 59 L 15 123/61 96 03/07/17 05:51 58 L 03/07/17 05:45 58 L 19 133/68 97 03/07/17 05:30 58 L 23 149/71 98 03/07/17 05:15 58 L 17 140/72 97 03/07/17 05:00 64 17 127/61 97 03/07/17 04:45 60 15 121/65 97 03/07/17 04:30 57 L 14 119/61 97 03/07/17 04:15 58 L 15 118/62 97 03/07/17 04:12 57 L 13 97 03/07/17 04:00 60 17 128/68 97 03/07/17 03:45 56 L 14 105/51 L 97 03/07/17 03:30 55 L 16 107/61 97 03/07/17 03:25 57 L 14 97 03/07/17 03:21 56 L 18 97 03/07/17 03:15 55 L 17 111/62 97 Intake and Output (Last 8hrs): Intake & Output 03/06/17 03/07/17 03/07/17 22:59 06:59 14:59 Intake Total 318 Output Total 500 Balance -182 Weight 175 lb 4.8 oz Intake: IV 68 Nitroglycerin IV 10 Heparin IV 58 Oral 0 Tube Feeding 0 TPN/PPN 0 Blood Product 0 Lipid 0 Albumin 0 Other 250 Output: Urine 500 Urine, Voided 500 Stool 0 Urine/Stool Mix 0 Emesis 0 Oral Regurgitation 0 Other 0 Other: Voiding Method Urinal # Voids Urine, Voided 1 # Bowel Movements 0 - Physical Exam Head: Positive for: Atraumatic, Normocephalic Pupils: Positive for: PERRL Extroacular Muscles: Positive for: EOMI Conjunctiva: Positive for: Normal Mouth: Positive for: Moist Mucous Membranes Pharnyx: Positive for: Normal. Negative for: ERYTHEMA, EXUDATE Neck: Positive for: Normal Range of Motion Respiratory/Chest: Positive for: Clear to Auscultation, Good Air Exchange. Negative for: Respiratory Distress, Accessory Muscle Use Cardiovascular: Positive for: Regular Rate and Rhythm, Normal S1, S2 (s4). Negative for: Murmurs Abdomen: Positive for: Normal Bowel Sounds. Negative for: Tenderness, Distention, Peritoneal Signs Upper Extremity: Positive for: Normal Inspection. Negative for: Cyanosis, Edema Lower Extremity: Positive for: Normal Inspection. Negative for: Edema Neurological: Positive for: GCS=15, CN II-XII Intact, Speech Normal Skin: Positive for: Warm, Dry, Normal Color. Negative for: Rashes Psychiatric: Positive for: Alert, Oriented x 3, Normal Insight, Normal Concentration - Medications Active Medications: Active Medications Generic Name Dose Route Start Last Admin Trade Name Freq PRN Reason Stop Dose Admin Acetaminophen/Butalbital/Caffeine 1 tab 03/07/17 00:17 Fioricet PO Q4H PRN Headache Alprazolam 1 mg 03/07/17 05:20 03/07/17 05:42 Xanax PO 1 mg TID PRN Administration Anxiety Aspirin 81 mg 03/07/17 10:00 Ecotrin PO DAILY RACQUEL Atorvastatin Calcium 10 mg 03/07/17 22:00 Lipitor PO HS RACUQEL Heparin Sodium/Sodium Chloride 250 mls @ 9.689 mls/hr 03/06/17 22:00 03/06/17 22:00 Heparin 00883 Units/250ml 1/2 Normal Saline IV 9.689 mls/hr .Q24H RACQUEL Administration Protocol 12 UNITS/KG/HR Nitroglycerin/Dextrose 250 mls @ 1.5 mls/hr 03/06/17 22:40 03/06/17 23:13 Nitroglycerin 50 Mg/250 Ml D5w IV 1.5 mls/hr .Q24H PRN Administration Chest Pain Protocol 5 MCG/MIN Morphine Sulfate 2 mg 03/07/17 00:17 03/07/17 00:27 Morphine IVP 2 mg Q4H PRN Administration Pain, severe (8-10) Non-Formulary Medication 40 mg 03/07/17 10:00 Omeprazole Magnesium [Prilosec Otc] PO DAILY RACQUEL Sucralfate 1 gm 03/07/17 07:30 Carafate Tab PO AC RACQUEL - Patient Studies Lab Studies: Lab Studies 03/07/17 03/07/17 Range/Units 05:50 02:55 APTT 77.7 H* (23.7-30.8) Seconds Troponin I 24.60 H* D ng/mL Laboratory Results - last 24 hr 03/07/17 03/07/17 02:55 05:50 APTT 77.7 H* Troponin I 24.60 H* D Assessment/Plan - Assessment and Plan (Free Text) Plan: 77Y M with PMH CAD s/p stents x 3 on ASA/BB/Lipitor, HTN, HLD, severe GERD, c/o R chest pain at rest, was found to have NSTEMI. In the ED, patient was noted to be hypertensive with SBP of 200 and positive troponin. EKG showed RBBB, L axis deviation, L anterior fasicular block and LVH. CTA has ruled out PE. Echo (2015) shows RVSP 31. EF 65%, moderate AR. He is on heparin gtt and nitro gtt. Neuro: A&O x 3 Maintain normothermia CV: Will go to catherterization today; start Effient; light breakfast, then npo for cath. stop heparin at 1. metoprolol 25 bid EKG showed RBBB, L axis deviation, L anterior fasicular block and LVH Troponin 0.5 --> 24 On Heparin Drip, d/c at 1pm for cath On Nitro Drip ASA, Lipitor Metoprolol 25 BID Morphine 2mg prn pain Fiorecet prn headache Cholesterol panel and TSH noted to be normal on last admission (01/2017) Maintain MAP>65 Goal Hb 8-9 Pulm: CTA showed no evidence of PE CXR showed no active disease 2L NC Maintain SpO2>90% GI: NPO Omeprazole Heme: Hgb 16 ID: Afebrile, no leukocytosis Endo: Maintain euglycemia Psych: Hold Xanax Will restart if pt has anxiety Prophylaxis Prilosec Heparin drip S/R/D/w Dr. Avila - Date & Time Date: 03/07/17 Time: 07:14 <Austin WILLAMS,Ame H - Last Filed: 03/07/17 17:53> CCU Objective - Vital Signs / Intake & Output Vital Signs (Last 4 hours): Vital Signs Pulse Resp BP Pulse Ox 03/07/17 17:01 91 H 18 171/100 H 03/07/17 17:00 93 H 19 03/07/17 16:59 90 17 03/07/17 16:46 160/70 H 03/07/17 15:28 66 165/79 H 03/07/17 14:00 63 11 L 146/77 98 Intake and Output (Last 8hrs): Intake & Output 03/07/17 03/07/17 03/07/17 06:59 14:59 22:59 Intake Total 318 Output Total 500 Balance -182 Weight 175 lb 4.8 oz Intake: IV 68 Nitroglycerin IV 10 Heparin IV 58 Oral 0 Tube Feeding 0 TPN/PPN 0 Blood Product 0 Lipid 0 Albumin 0 Other 250 Output: Urine 500 Urine, Voided 500 Stool 0 Urine/Stool Mix 0 Emesis 0 Oral Regurgitation 0 Other 0 Other: Voiding Method Urinal Urinal # Voids Urine, Voided 1 # Bowel Movements 0 - Medications Active Medications: Active Medications Generic Name Dose Route Start Last Admin Trade Name Freq PRN Reason Stop Dose Admin Acetaminophen/Butalbital/Caffeine 1 tab 03/07/17 00:17 Fioricet PO Q4H PRN Headache Alprazolam 1 mg 03/07/17 05:20 03/07/17 11:04 Xanax PO 1 mg TID PRN Administration Anxiety Aspirin 81 mg 03/07/17 10:00 03/07/17 10:13 Ecotrin PO Not Given DAILY RACQUEL Atorvastatin Calcium 20 mg 03/07/17 22:00 Lipitor PO HS RACQUEL Famotidine 40 mg 03/07/17 10:00 03/07/17 11:04 Pepcid PO 40 mg BID RACQUEL Administration Hydralazine HCl 10 mg 03/07/17 17:08 Apresoline PO QID PRN FOR SBP>170 7 Diastolic>100 Heparin Sodium/Sodium Chloride 250 mls @ 9.689 mls/hr 03/06/17 22:00 03/07/17 10:14 Heparin 68833 Units/250ml 1/2 Normal Saline IV 12 units/kg/hr .Q24H RACQUEL Titration Protocol 12 UNITS/KG/HR Sodium Chloride 1,000 mls @ 100 mls/hr 03/07/17 17:15 Sodium Chloride 0.9% IV 03/07/17 23:00 .Q10H [facility] Metoprolol Tartrate 25 mg 03/07/17 08:00 03/07/17 08:59 Lopressor PO 25 mg BRKDIN RACQUEL Administration Morphine Sulfate 2 mg 03/07/17 00:17 03/07/17 11:25 Morphine IVP 2 mg Q4H PRN Administration Pain, severe (8-10) Prasugrel 10 mg 03/08/17 10:00 Effient PO DAILY [facility] Ramipril 2.5 mg 03/08/17 10:00 Altace PO DAILY [facility] Sucralfate 1 gm 03/07/17 07:30 03/07/17 12:00 Carafate Tab PO Not Given AC RACQUEL - Patient Studies Lab Studies: Lab Studies 03/07/17 03/07/17 03/07/17 Range/Units 11:28 11:15 07:52 APTT 82.2 H* (23.7-30.8) Seconds POC Glucose (mg/dL) 101 102 (65-110) mg/dL Troponin I 17.90 H* D ng/mL Triglycerides 83 (35-160) mg/dL Cholesterol 149 (130-200) mg/dL LDL Cholesterol Direct 93 (0-129) mg/dL HDL Cholesterol 41 (29-60) mg/dL 03/07/17 03/07/17 Range/Units 05:50 02:55 APTT 77.7 H* (23.7-30.8) Seconds POC Glucose (mg/dL) (65-110) mg/dL Troponin I 24.60 H* D ng/mL Triglycerides (35-160) mg/dL Cholesterol (130-200) mg/dL LDL Cholesterol Direct (0-129) mg/dL HDL Cholesterol (29-60) mg/dL Laboratory Results - last 24 hr 03/07/17 03/07/17 03/07/17 02:55 05:50 07:52 APTT 77.7 H* POC Glucose (mg/dL) 102 Troponin I 24.60 H* D Triglycerides Cholesterol LDL Cholesterol Direct HDL Cholesterol 03/07/17 03/07/17 11:15 11:28 APTT 82.2 H* POC Glucose (mg/dL) 101 Troponin I 17.90 H* D Triglycerides 83 Cholesterol 149 LDL Cholesterol Direct 93 HDL Cholesterol 41 EKG/Cardiology Studies: Cardiology / EKG Studies 03/07/17 17:01 ELECTROCARDIOGRAM Urgent Comment: 12 lead EKG upon arrival in unit Reason For Exam: post ptca 03/07/17 17:15 ELECTROCARDIOGRAM DAILY Comment: Reason For Exam: chest pain 03/08/17 07:00 ELECTROCARDIOGRAM Routine Comment: NSTEMI. S/P PTCA Reason For Exam: CAD PRE OP:: N Does Patient Have a Pacemaker?: No PERFORMING PHYSICIAN/PROVIDER:: Harley Whitlock 03/08/17 17:15 ELECTROCARDIOGRAM DAILY Comment: Reason For Exam: chest pain Critical Care Progress Note - Nutrition Nutrition: Nutrition Category Date Time Status Heart Healthy Diet [DIET] Diets 03/07/17 Dinner Ordered Attending/Attestation - Attestation I have personally seen and examined this patient.: Yes I have fully participated in the care of the patient.: Yes I have reviewed all pertinent clinical information: Yes Notes (Text): 03/07/17 17:46 77 y/o M w/ Unstable angina x > 36hrs. High JAE >5 NSTEMI On heparin drip, Effient , asprin , Nitro drip pending cardiac cath this afternoon/ Chest pain improved with oxygen and Morphine. Previous CAD stent history as well. Vitals are WNL , no signs of Cardiogenic shock. Continue B-Blockers as tolerated, asprin, prasugrel, yair I . ECHo needed . Cath site check. F/U sten placement from equipment operator/laborer/supervisor. cc time 65 min
--- NOTE | 2017-03-07 07:49 | CP.PCM.PCO ---
Physician Communication Note - Physician Communication Note Physician Communication Note: NSTEMI/?cath per Cardiology
--- NOTE | 2017-03-07 08:17 | CT ---
PROCEDURE: CT Chest with contrast (Pulmonary Angiogram) HISTORY: chest pain - r/o PE COMPARISON: None available. TECHNIQUE: Axial computed tomography images were obtained of the chest in the pulmonary arterial phase of enhancement. Coronal and sagittal reformatted images were created and reviewed. Intravenous contrast dose: Visipaque 320 100 mL Radiation dose: Total exam DLP = 490 mGy-cm. This CT exam was performed using one or more of the following dose reduction techniques: Automated exposure control, adjustment of the mA and/or kV according to patient size, and/or use of iterative reconstruction technique. FINDINGS: PULMONARY ARTERIES: Unremarkable. No pulmonary embolism. AORTA: No acute findings. No thoracic aortic aneurysm. A cine aortic 3.7 cm. Descending thoracic aortic 2.4 cm-both at main pulmonary artery level LUNGS: Unremarkable. No nodule, mass or pulmonary consolidation. No pulmonary nodules greater than 5 mm in size identified Minimal posterior dependent lung attenuation changes PLEURAL SPACES: Short segmental areas of nonspecific bilateral pleural thickening. No effusion or pneuomothorax. HEART: Unremarkable. No cardiomegaly. No significant pericardial effusion. LYMPH NODES: No lymphadenopathy. BONES, CHEST WALL: Thoracic spondylosis No fracture or destructive lesion OTHER FINDINGS: Coronary artery calcifications. Thoracic aorta and thoracic aortic branches and splenic arterial atherosclerotic vascular calcifications IMPRESSION: Unremarkable CT pulmonary angiogram. No pulmonary embolus. . Atherosclerotic vascular disease also affecting the coronary arteries
--- NOTE | 2017-03-07 09:45 | RAD ---
HISTORY: cp, sob COMPARISON: 02/07/2017 FINDINGS: LUNGS: The left infrahilar marking appear mildly prominent -however this is unchanged. No interval consolidation appreciated PLEURA: No significant pleural effusion identified, no pneumothorax apparent. CARDIOVASCULAR: Probable top-normal. Aortic knob calcification OSSEOUS STRUCTURES: Thoracic spondylosis and leftward thoracolumbar convexity partially visualized is hardware in the mid lumbar segments VISUALIZED UPPER ABDOMEN: Normal. OTHER FINDINGS: None. IMPRESSION: No interval pathology noted
--- NOTE | 2017-03-07 10:39 | HP ---
CHIEF COMPLAINT: Chest pain. HISTORY OF PRESENT ILLNESS: The patient is an extremely neurotic a 77-year-old male who w[place] s a long history for the past 8 years of coronary artery disease, now complains of pain today across his precordium that is greater than 10/10 and much stronger than when he had a previous heart attack. He has undergone previous coronary stents (3) and has been stable over the past several years with episodes of epigastric pain that are secondary to peptic gastritis with reflux. Initially in the [facility] Room, seen here at , his troponin was elevated at 0.5. His EKG did not show any significant change (NSTEMI) and he was given morphine, Tridil and only minimal relief. PAST MEDICAL HISTORY: Includes cholecystectomy, appendectomy and lumbar laminectomy for spinal steno sis. REVIEW OF SYSTEMS: 1. Coronary artery stents x 3. 2. 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 3. Significant gastroesophageal reflux, taking Prevacid at this point. MEDICATIONS: Xanax 1 mg t.i.d., Lipitor 10 mg daily, aspirin 81, Toprol 50 b.i.d., Carafate 1 t.i.d. , Prevacid 1 daily. SOCIAL HISTORY: Denies tobacco or alcohol. PHYSICAL EXAMINATION: GENERAL: He denies tobacco, alcohol, or other drug use. VITAL SIGNS: Blood pressure was 200/104 in spite of the morphine and the Tridil drip. HEENT: Normal. LUNGS: Clear. HEART: Regular sinus rhythm. ABDOMEN: Soft. EXTREMITIES: Without cyanosis, clubbing, or edema. IMPRESSION UPON ADMISSION: 1. Non-ST segment elevation myocardial infarction -- troponin 0.5. 2. Hypertensive coronary artery disease. 3. Gastroesophageal reflux. 4. Severe anxiety neurosis. 5. Hyperlipidemia. 6. Spinal stenosis. RECOMMENDATIONS: As per cardiology, the patient will remain on Tridil and morphine at this point wit h gastroesophageal prophylaxis and heparin drip. The patient cannot tolerate Protonix due to severe generalized reaction with shaking and flushing. Mark Shearer MD cc: [phone] TT: 03/07/2017 10:39:11 an
--- NOTE | 2017-03-07 10:53 | CON ---
DATE: 03/07/2017 REASON FOR CONSULTATION: [id number] myocardial infarction, acute coronary syndrome, coronary art sandra disease. BRIEF CLINICAL HISTORY: This is a 77-year-old male with multiple admissions with chest pain who said that after supper yesterday the patient felt right-sided chest pain predominantly then moved to the left side, then pain did not go away. On a scale of 1-10 it was a 10 so told the , Debo, to freddie nichols the ambulance 911, so patient was brought here. The first troponin was 0.05. Repeat troponin at [address] angio was done; it was essentially negative for pulmonary embolism. The patien t got morphine. This morning, the patient's pain is significantly relieved. On a scale of 1-10, it is now between 2 and 3, but earlier it was 10. PAST MEDICAL HISTORY: Significant for coronary artery disease status post multiple stents in the pas t, last PTCA was 11/10/2011, last cardiac catheterization was ____. Medical treatment recomm ended. History of severe gastroesophageal reflux, on Carafate and PPI; multiple admissions recently with chest pain, found to be gastroesophageal reflux. PREVIOUS CARDIAC WORKUP: As mentioned multiple stents, last stent was 11/10/2011. Last cardiac cath eterization ____ at [facility]. Chronic ST segment elevation in V2, V3. Last ec ho in [facility] 03/08/2014, ejection fraction 55%. Last echo in office was okay. The p atient also has PAD, also PTCA of right femoral artery that was done 03/12/2014 after the patient's a ccess for the cardiac catheterization at [facility]. History of spinal stenosis, hi story of back pain, history of gastroesophageal reflux. SOCIAL HISTORY: Denies smoking. Denies any history of alcohol abuse. CURRENT MEDICATIONS: The patient is taking at home oxycodone, sucrulfate, metoprolol, atorvastatin, aspirin and Xanax 1 mg p.o. t.i.d. ALLERGIES: ____ questionable. REVIEW OF SYSTEMS: As per HPI. PHYSICAL EXAMINATION: VITAL SIGNS: Temperature afebrile, heart rate 56, blood pressure 115/58. HEENT: PERRLA. Extraocular muscles intact. NECK: Supple. No carotid bruits. No thyromegaly. CHEST: Clear to auscultation. HEART: S1, S2 regular. ABDOMEN: Soft. EXTREMITIES: Clubbing and cyanosis negative. EKG shows normal sinus, right bundle branch, left anterior hemiblock. PVCs noted. BLOOD WORKUP: WBC of 7.3, hemoglobin 16, hematocrit 44.2, platelet count 158. Chemistry shows sodiu m 128, potassium 3.8, chloride ____, carbon dioxide 28, anion gap of 12, BUN 11, creatinine 0.5. Tro ponin 0.05, repeat is 24.6. IMPRESSION: Acute [id number] myocardial infarction, coronary artery disease, history of multiple stents, last stent in 2010, last catheterization in 2013 with a patent stent. History of peripheral arterial disease, severe gastroesophageal reflux, hypertension, hyperlipidemia. RECOMMENDATION: Continue heparin IV. Stop heparin at 1 a.m. Keep n.p.o. after the breakfast. Load with Effient 60 mg and will give 10 mg from tomorrow. Continue baby aspirin. Continue sucralfate. Decrease the dose of beta jeferson to 5 p.o. b.i.d. Will do the cardiac catheterization at 3 p.m. Di scussed with the . Will discuss with Dr. Shearer as well. Discussed with the patient in length . Discussed with the resident and the nurses taking care of the patient. Harley Whitlock MD cc:Mark Shearer MD [phone] TT: 03/07/2017 10:01:22 Confirmation # [id number] Dictation # [id number] mn
[2017-03-07 11:52] LABS: TROPONIN I 17.9 ng/mL
[2017-03-07] MEDS ORDERED: Lidocaine 2% Inj (20ml) ONE (14:13)
[2017-03-07] MEDS ORDERED: Iodixanol 320 MG/ML 200 ML BOTTLE IV ONE (14:14)
[2017-03-07] MEDS ORDERED: Iodixanol 320 MG/ML 100 ML BOTTLE IV ONE (14:14)
[2017-03-07] MEDS ORDERED: Nitroglycerin 50mg in D5W 250 ML IV ONE (14:14)
[2017-03-07] MEDS ORDERED: Iohexol 350mgl/ml 50 ML ONE (14:14)
[2017-03-07] MEDS ORDERED: Phenylephrine 10 mg/ml Inj ONE (14:14)
[2017-03-07] MEDS ORDERED: Midazolam 2 MG/2 ML VIAL ONE (14:22)
[2017-03-07] MEDS ORDERED: Sodium Chloride 0.9% 1,000 ML IV SCH (17:15)
--- NOTE | 2017-03-07 17:23 | CARD ---
APPROVED REPORT Procedure(s) performed: Left Heart Catheterization PTCA with Stenting of OM1 with GERA PTCA with Stentingof Mid RCA with GERA HISTORY The patient is a 77 year-old male with a history of : previous IA (> 7 days), previous diagnostic cath, previous PCI (The PCI date was 10/19/2011), hypertension , dyslipidemia , Hx of multiple Stents inthe past admitted with NSTEMI. INDICATION The indication(s) include : non-STEMI . CASE TECHNIQUE The patient was brought urgently to the Cardiac Catheterization Laboratory in a fasting state and was prepped and draped in a sterile manner. The left wrist was infiltrated with 2% Lidocaine subcutaneous anesthesia. A 6 Fr Glidesheath (Radial) sheath was inserted into the left radial artery without difficulty. Coronary angiography was performed using coronary diagnostic catheters. The left coronary system was accessed and visualized with a Diagnostic ,JL4.0,5Fr catheter. The right coronary system was accessed and visualized with a Diagnostic ,JR4.0,5Fr catheter. The left ventricle was accessed and visualized with a pig tail catheter. Left ventricular/Aortic Valve gradient assessed on pullback. Left ventriculogram was performed in GOOD projection. Closure device was deployed with a Fr TR Band (Regular) without any complications. The patient tolerated the procedure well and there were no complications associated with the procedure. Vessel Analysis The patient's coronary anatomy is right dominant. The left main coronary artery is a large size vessel with diffuse calcification noted throughout this vessel and without significant stenosis. The left main bifurcates to the left anterior descending and circumflex. The left anterior descending artery is a large size vessel with diffuse calcification noted throughout this vessel and without significant stenosis. ectatic The first diagonal branch is a medium size vessel with diffuse calcification noted throughout this vessel and without significant stenosis. The second diagonal branch is a medium size vessel with diffuse calcification noted throughout this vessel and without significant stenosis. The circumflex artery is a large size vessel with diffuse calcification noted throughout this vessel and without significant stenosis. The first obtuse marginal branch is a medium size vessel with diffuse calcification noted throughout this vessel and with significant stenosis. There is a 99% stenosis in the proximal segment. with ruptured plaque, thought to be culprit vessel for this NSTEMI The second obtuse marginal branch is a medium size vessel with diffuse calcification noted throughout this vessel and without significant stenosis. The third obtuse marginal branch is a medium size vessel with diffuse calcification noted throughout this vessel and without significant stenosis. The right coronary artery is a medium size vessel with diffuse calcification noted throughout this vessel and without significant stenosis. Patent stent proximally, very tortous vessel mid distally There is a 80-90% stenosis in the mid segment. The right posterior descending artery is a medium size vessel with diffuse calcification noted throughout this vessel and without significant stenosis. Left Ventricle The left ventricle is normal in size with normal contractility. There was no cardiomyopathy. The left ventricular ejection fraction is estimated to be 55%. The left ventricular end diastolic pressure is 25 mmHg. There was no gradient across the aortic valve upon pullback. PCI Technique Lesion Anticoagulation was achieved with Heparin. Percutaneous coronary intervention was performed on the first obtuse marginal branch segment. The lesion stenosis prior to intervention was 99% with JAE flow. A 6 Fr JL 4 Guide Catheter was used to engage the left main ostium. BALLOON DILATION A Balloon catheter 2.0 x 8 mm Mini Trek RX was inserted and inflated up to 10.00atm for 12seconds. STENT DEPLOYMENT A drug-eluting stent 2.75 x 12 mm Resolute GERA was inserted and inflated up to 12.00atm for 20seconds. Final angiography reveals 0 % stenosis with JAE 3 flow. PCI Technique Lesion 2 Percutaneous Coronary Intervention was performed on the mistal right coronary artery. The lesion stenosis prior to intervention was 80-90% with JAE 3 flow. A 6 Fr AL 0.75 Guide Catheter was used to engage the ostium. BALLOON DILATION A Balloon catheter 2.0 x 8 mm Mini Trek RX was inserted and inflated up to 10.00atm for 15seconds. STENT DEPLOYMENT A drug-eluting stent 2.5 x 22 mm Resolute GERA was inserted and inflated up to 12.00atm for 29seconds. POST STENT DEPLOYMENT BALLOON DILATION A Balloon catheter 2.75 x 9 mm Sprinter NC was inserted and inflated up to 12.00atm for 11seconds. Final angiography reveals 0 % stenosis with JAE 3 flow. Conclusion Two vessel CAD, OM1 and RCA OM1 (Cx) thought to be Culprit Patent previous [id number] in LAD/ RCA Preserved LV [id number].[id number], EDP-25 mmof Hg. Successful PTCA with GERA of OM1 ( CX) and mid RCA Recommendations Cardiac Rehabilitation Referral Aggressive Medical TherapyCardiac Risk Reduction Program Mandatory continue ASA 81 mg and Effient 10 mg po daily for one year. Cc; R.MD Nora
--- NOTE | 2017-03-07 18:05 | CARD ---
APPROVED REPORT EKG Measurement Heart [id number] <Conclusion> Sinus rhythm with occasional premature ventricular complexes Right bundle branch block Left anterior fascicular block Bifascicular block Voltage criteria for left ventricular hypertrophy Cannot rule out Septal infarct, age undetermined Abnormal ECG
[2017-03-07 18:57] LABS: ADD MANUAL DIFF? NO
[2017-03-07 19:00] LABS: BASO # 0.02 K/mm3 (0.0-2.0); BASO % 0.3 % (0.0-3.0); EOS # 0.2 (0.0-0.7); EOS % 3.2 % (1.5-5.0); GRAN # 4.04 (1.4-6.5); GRAN % 62.4 % (50.0-68.0); HEMATOCRIT 39.1 % (42.0-52.0); LYMPH # 1.2 (1.2-3.4); LYMPH % 18.4 % (22.0-35.0); MEAN CELL VOLUME 91.6 fL (80.0-105.0); MEAN CORPUSCULAR HEMOGLOBIN 32.6 pg (25.0-35.0); MEAN CORPUSCULAR HGB CONC 35.5 g/dl (31.0-37.0); MEAN PLATELET VOLUME 9.1 fl (7.0-11.0); MONO % 15.7 % (1.0-6.0); PLATELET COUNT 136 10^3/uL (120.0-450.0); RED CELL DISTRIBUTION WIDTH 12.9 % (11.5-14.5); WHITE BLOOD COUNT 6.5 10^3/ul (4.5-11.0)
[2017-03-07 19:10] LABS: BLOOD UREA NITROGEN 9 mg/dL (7-21); CALCIUM 7.6 mg/dL (8.4-10.5); CARBON DIOXIDE 27 mmol/L (21-33); CHLORIDE 102 mmol/L (98-107); GFR AFRICAN-AMERICAN > 60; GLUCOSE,RANDOM 88 mg/dL (70-110); SODIUM 135 mmol/L (132-148)
[2017-03-07 19:41] LABS: TROPONIN I 9.04 ng/mL
--- NOTE | 2017-03-07 20:12 | CARD ---
APPROVED REPORT EXAM: Two-dimensional and M-mode echocardiogram with Doppler and color Doppler. INDICATION CO/NSTEMI 2D DIMENSIONS Left Atrium (2D)4.1 (1.6-4.0cm)IVSd1.3 (0.7-1.1cm) LVDd4.1 (3.9-5.9cm)PWd1.4 (0.7-1.1cm) LVDs2.8 (2.5-4.0cm)FS (%) 31.7 % LVEF (%)60.1 (>50%) M-Mode DIMENSIONS Aortic Root3.80 (2.2-3.7cm)Aortic Cusp Exc.1.80 (1.5-2.0cm) Aortic Valve AoV Peak Dumztirv978.0cm/sAoV VTI32.3cmAO Peak GR.10mmHg LVOT Peak Roaeerqp872.0cm/sLVOT VTI26.70cmAO Mean GR.5mmHg AI P 1/2 [id number] Mitral Valve MV E Kqfplqaz59.9cm/sMV A Gazmrplg280.0cm/sE/A ratio0.6 TDI Lateral E' Peak V7.02cm/sMedial E' Peak V6.04cm/sE/Lateral E'11.5 E/Medial E'13.4 Pulmonary Valve PV Peak Kpnaxvrm15.2cm/sPV Peak Grad.2mmHg Tricuspid Valve TR Peak Fqmwitor619zy/sRAP AJHCWDGO38ruGfRE Peak Gr.32mmHg DWIR38fxMi LEFT VENTRICLE The left ventricle is normal size. There is mild concentric left ventricular hypertrophy. The left ventricular function is normal.EF-55-60% There is mild hypokinesis in the apical anterior wall. Transmitral Doppler flow pattern is Grade III-reversible restrictive diastolic dysfunction. No left ventricle thrombus noted on this study. There is no ventricular septal defect visualized. There is no left ventricular aneurysm. There is no mass noted in the left ventricle. RIGHT VENTRICLE The right ventricle is normal size. There is normal right ventricular wall thickness. The right ventricular systolic function is normal. ATRIA The left atrium is mildly dilated. The right atrium size is normal. The interatrial septum is intact with no evidence for an atrial septal defect. AORTIC VALVE The aortic valve is thickened but opens well. There is moderate to severe aortic regurgitation. There is no aortic valvular stenosis. There is no aortic valvular vegetation. MITRAL VALVE The mitral valve is thickened but opens well. Mitral regurgitation is mild to moderate. There is no mitral valve stenosis. There is no evidence of mitral valve prolapse. TRICUSPID VALVE The tricuspid valve leaflets are thickened , but open well. There is mild tricuspid regurgitation.RVSP-42 mmof Hg There is no tricuspid valve stenosis. There is no tricuspid valve prolapse or vegetation. PULMONIC VALVE The pulmonic valve is mildly thickened. There is mild to moderate pulmonic valvular regurgitation. There is no pulmonic valvular stenosis. GREAT VESSELS The aortic root is normal in size. The ascending aorta is normal in size. The pulmonary artery is normal. The IVC is normal in size and collapses >50% with inspiration. PERICARDIAL EFFUSION There is no pleural effusion. There is no pericardial effusion. <Conclusion> The left ventricle is normal size. There is mild concentric left ventricular hypertrophy. The left ventricular function is normal.EF-55-60% There is moderate to severe aortic regurgitation. Mitral regurgitation is mild to moderate. There is mild tricuspid regurgitation.RVSP-42 mmof Hg There is mild to moderate pulmonic valvular regurgitation. S/P NSTENI , s/p two vessel PTCA.
--- NOTE | 2017-03-07 21:14 | CP.PCM.PCO ---
Physician Communication Note - Physician Communication Note Physician Communication Note: NSTEMI: Rx 2 Stents
[2017-03-07] MEDS ORDERED: Bacitracin 500 Units/gm Oint Foilpak UD ONE (21:29)
[2017-03-08 03:52] VITALS: TEMP 98.9
[2017-03-08 06:17] LABS: ADD MANUAL DIFF? NO
[2017-03-08 06:27] LABS: BASO # 0.02 K/mm3 (0.0-2.0); BASO % 0.2 % (0.0-3.0); EOS # 0.4 (0.0-0.7); EOS % 3.9 % (1.5-5.0); GRAN # 5.22 (1.4-6.5); GRAN % 47.4 % (50.0-68.0); HEMATOCRIT 44.7 % (42.0-52.0); LYMPH # 3.9 (1.2-3.4); LYMPH % 35.2 % (22.0-35.0); MEAN CELL VOLUME 91.8 fL (80.0-105.0); MEAN CORPUSCULAR HEMOGLOBIN 32.2 pg (25.0-35.0); MEAN CORPUSCULAR HGB CONC 35.1 g/dl (31.0-37.0); MEAN PLATELET VOLUME 9.4 fl (7.0-11.0); MONO # 1.5 (0.1-0.6); MONO % 13.3 % (1.0-6.0); PLATELET COUNT 184 10^3/uL (120.0-450.0); RED CELL DISTRIBUTION WIDTH 13.1 % (11.5-14.5)
[2017-03-08 06:29] LABS: INR 1.08 (0.93-1.08)
[2017-03-08 06:40] LABS: ALB/GLOB RATIO 1.1 (1.1-1.8); ALKALINE PHOSPHATASE 102 U/L (38-133); ALT/SGPT 66 U/L (7-56); AST/SGOT 104 U/L (15-59); BILIRUBIN,TOTAL 1.3 mg/dL (0.2-1.3); BLOOD UREA NITROGEN 11 mg/dL (7-21); CALCIUM 8.9 mg/dL (8.4-10.5); CARBON DIOXIDE 25 mmol/L (21-33); CHLORIDE 101 mmol/L (98-107); GFR AFRICAN-AMERICAN > 60; GLUCOSE,RANDOM 119 mg/dL (70-110); MAGNESIUM 2.1 mg/dL (1.7-2.2); PHOSPHOROUS 2.9 mg/dL (2.5-4.5); POTASSIUM 3.4 mmol/L (3.6-5.0); SODIUM 135 mmol/L (132-148); TOTAL PROTEIN 7.6 g/dL (5.8-8.3)
[2017-03-08] MEDS ORDERED: Metoprolol 1 mg/ml Inj IVP STA (07:01)
[2017-03-08 07:18] LABS: TROPONIN I 7.49 ng/mL
[2017-03-08] MEDS ORDERED: Pantoprazole 40 mg EC Tab PO SCH (07:30)
--- NOTE | 2017-03-08 09:10 | CP.PCM.PCO ---
Physician Communication Note - Physician Communication Note Physician Communication Note: ? home today
[2017-03-08] MEDS ORDERED: Potassium Chloride 20 mEq ER Tab PO ONE (10:10)
--- NOTE | 2017-03-08 10:46 | PN ---
DATE: 03/08/2017 REASON FOR CONSULTATION AND FOLLOWUP: [id number] myocardial infarction, acute coronary syndrome, status post 2-vessel angioplasty. BRIEF CLINICAL HISTORY: A 77-year-old male with past medical history significant for multiple stents in the past, last PTCA in 11/07/2011, last catheterization was 02/2014, patent stent, admitted yester day with acute coronary syndrome. First troponin 0.5, repeat troponin was 24. The patient was taken to research lab assistant on an emergent basis and status post 2-vessel angioplasty OM1 branch of circumflex and 9 9% stenosis ruptured plaque thought to be the culprit vessel, was stented as well as right coronary a rtery, mid 80% stenosis stented. This morning, patient became very abrupt and wanted to sign out, so ultimately a call from the home and intervened. After that, patient calmed down. When I came back to see him, he said night staff was in love with him, so he got upset, but he wanted to be transferre d to telemetry, later on to be discharged. The patient is comfortable. EKG is in normal sinus, right bundle, left anterior hemiblock, no acute ST-T changes. Denies any chest pain, shortness of breath, any palpitation. During this commotion at 6:00 a.m., patient went into SVT and refused to take IV m edication. After I intervened, patient agreed and gave 2.5 mg of Lopressor, broke to normal sinus. Since then, the patient is fairly stable. PHYSICAL EXAMINATION: VITAL SIGNS: Temperature afebrile, heart rate 77, blood pressure 144/83. HEENT: PERRLA. Extraocular muscles intact. NECK: Supple. No carotid bruits. No thyromegaly. CHEST: Clear to auscultation. HEART: S1, S2 regular. ABDOMEN: Soft. EXTREMITIES: Clubbing and cyanosis negative. LABORATORY DATA: Blood workup as follows: WBC 11, hemoglobin , hematocrit 44.7, platelet count 187. Chemistry shows sodium 135, potassium 3.54, chloride 101, carbon dioxide 27, anion gap of 12, BUN 11, creatinine 0.8. Troponin trending down to 7.49. Maximum being 24.6 with a trend to 9.04. C PK 373. IMPRESSION: Acute coronary artery disease, pgf-TH-vcnlyif myocardial infarction, coronary artery dis ease, status post 2 vessels stented, obtuse marginal 1, obtuse marginal branch of the circumflex with ruptured plaque stented as well as right coronary artery stented. pe manager, patient was upset, now he is calmed down. RECOMMENDATION: Plan is to give early dose of metoprolol, told the nurse to give 50 mg now, give the Xanax as patient's routine medication. Will transfer to telemetry, ambulate. Possible discharge ho me this afternoon or tomorrow morning, depending upon the patient's condition. We will follow with ham garnica. Will resume the baseline medications including atorvastatin and metoprolol 50 mg twice, and put ramip ril 2.5 mg daily p.r.n., supplement potassium. We will follow with you. Thank you, Dr. Shearer, for providing the opportunity in taking care of this patient. Harley Whitlock MD cc: [id number] TT: 03/08/2017 10:45:56 Confirmation # [id number] Dictation # [id number] mynor
[2017-03-08] MEDS ORDERED: Oxycodone/Acetaminophen 5/325 mg Tab PO ONE (11:36)
[2017-03-08 15:18] VITALS: BP 153/83; PULSE 78; RESP 52; O2SAT 96
--- NOTE | 2017-03-08 15:30 | CARD ---
APPROVED REPORT EKG Measurement Heart [id number] FL 172P34 [id number] <Conclusion> Normal sinus rhythm Right bundle branch block Left anterior fascicular block Bifascicular block Minimal voltage criteria for LVH, may be normal variant Anterolateral infarct, age undetermined Abnormal ECG
--- NOTE | 2017-03-08 15:34 | CARD ---
APPROVED REPORT EKG Measurement Heart [id number] CT 178P20 [id number] <Conclusion> Normal sinus rhythm Right bundle branch block Left anterior fascicular block Bifascicular block Moderate voltage criteria for LVH, may be normal variant Cannot rule out Septal infarct, age undetermined T wave abnormality, consider lateral ischemia Abnormal ECG
--- NOTE | 2017-05-13 23:46 | DS ---
CHIEF COMPLAINT: Acute coronary syndrome. HISTORY OF PRESENT ILLNESS: The patient is an extremely necrotic 77-year-old male who has a long past history for 8 years of coronary artery disease. He now complains today of acute pain acr oss his precordium greater than 10/10 and much stronger than when he had a previous heart attack and stenting. He has had 3 cardiac stents in the past, has been stable over the past several years with histories of epigastric pain secondary to chronic peptic gastritis with reflux. Initially, his tropo ashley was 0.5. His EKG did not show any significant change, NSTEMI, and he was given morphine, Tridil, with only minimal relief. PAST MEDICAL HISTORY: Includes cholecystectomy, appendectomy and lumbar laminectomy for severe spina l stenosis. MEDICATIONS: Include Xanax 1 mg 3 times a day, Lipitor 10, aspirin 81, Toprol 50 b.i.d., Carafate 1 t.i.d., Prevacid 1 daily. PHYSICAL EXAMINATION: Otherwise unremarkable, save for the complaint of precordial chest pain. LABORATORY DATA: EKG is NSTEMI without significant abnormality. Troponin demonstrated an elevation of 0.5. His initial white count is 7.3, his hemoglobin was 16 dropping to 15.7. His troponin on the day of discharge naun to 7.49 and his LDH was 822. HOSPITAL COURSE: The patient was brought to the catheterization lab by Dr. Trevor Whitlock and he performed another stent and the patient was doing exceptionally well, the pain was gone and he is discharged wi th the same medications on admission with increase in blood thinner that was prescribed by Dr. Whitlock. DISCHARGE DIAGNOSES: 1. NSTEMI myocardial infarction. 2. Hypertension. 3. Gastroesophageal reflux. 4. Spinal stenosis. 5. Severe anxiety neurosis. This dictation will be electronically signed without being read. Mark Shearer MD cc: [phone] TT: 05/13/2017 23:45:52 ut
== END 2017-03-08 16:18 | disposition home or self-care (01) | DRG 247 ==
LOC: ED 18:53 → ERH 23:13 → CCU 03-07 01:09
PROVIDERS: ADMIT Surgery; ATTEND Surgery
PROC: 027135Z Dilation of Coronary Artery, Two Arteries with Two Drug-eluting Intraluminal Devices, Percutaneous Approach (ICD-10-PCS; principal; 2017-03-07)
PROC: 4A023N7 Measurement of Cardiac Sampling and Pressure, Left Heart, Percutaneous Approach (ICD-10-PCS; 2017-03-07)
PROC: B2051ZZ Plain Radiography of Left Heart using Low Osmolar Contrast (ICD-10-PCS; 2017-03-07)
PROC: B2011ZZ Plain Radiography of Multiple Coronary Arteries using Low Osmolar Contrast (ICD-10-PCS; 2017-03-07)
PROC: 3E073KZ Introduction of Other Diagnostic Substance into Coronary Artery, Percutaneous Approach (ICD-10-PCS; 2017-03-07)
DX: I21.4 Non-ST elevation (NSTEMI) myocardial infarction (principal); I25.110 Atherosclerotic heart disease of native coronary artery with unstable angina pectoris; I45.2 Bifascicular block; I47.1 Supraventricular tachycardia; E78.5 Hyperlipidemia, unspecified; I10 Essential (primary) hypertension; F41.1 Generalized anxiety disorder; K21.9 Gastro-esophageal reflux disease without esophagitis; M48.06 Spinal stenosis, lumbar region; I73.9 Peripheral vascular disease, unspecified; Z95.5 Presence of coronary angioplasty implant and graft; Z79.82 Long term (current) use of aspirin

== ENCOUNTER 2017-06-05 20:50 | Observation (INO) | payer MEDICARE, BC ==
--- NOTE | 2017-06-05 21:30 | ED PDOC ---
Arrival/HPI - General Chief Complaint: Palpitations Time Seen by Provider: 06/05/17 21:00 Historian: Patient - History of Present Illness Narrative History of Present Illness (Text): 06/05/17 21:00 Wilmar Haywood is a 77 year old male, with a history of hypercholesterolemia, hypertension, peripheral vascular disease, and ND with 2 stents, presents to the emergency department complaining of palpitations since today afternoon. He also states that he developed some left sided chest discomfort 90 minutes prior to arrival. Currently states that palpitations have resolved and reports of mild chest pain. Denies any fever, chills, difficulty breathing, nausea, vomiting, urinary symptoms, or any other complaints at this time. Time/Duration: Other (today afternoon ) Symptom Course: Improving Severity Level: Mild Activities at Onset: Light Context: Home Past Medical History - Provider Review Nursing Documentation Reviewed: Yes - Past History Past History: No Previous - Infectious Disease Hx of Infectious Diseases: None - Tetanus Immunization Tetanus Immunization: Unknown - Cardiac Hx Cardiac Disorders: Yes (Stent occluded. Hyperlipidemia. Hypercholesterolemia. ) Hx Angina: Yes Hx Hypertension: Yes Hx Peripheral Vascular Disease: Yes Other/Comment: Family hx of 5 brothers befor the age of 60 yrs old from heart disease. Heart disease runs on the paternal side. - Pulmonary Hx Respiratory Disorders: No - Neurological Hx Neurological Disorder: No - HEENT Hx HEENT Disorder: No - Renal Hx Renal Disorder: No - Endocrine/Metabolic Hx Endocrine Disorders: No - Hematological/Oncological Hx Blood Disorders: No - Integumentary Hx Dermatological Disorder: No - Musculoskeletal/Rheumatological Hx Musculoskeletal Disorders: Yes (Hx of Sciatica. Hx of Bulging Disks.) Hx Arthritis: Yes Hx Back Pain: Yes Hx Falls: No Hx Herniated Disk: Yes Hx Spinal Stenosis: Yes Hx Unsteady Gait: Yes (Ambulates w/ cane when outside.) Other/Comment: Dr. Quick (from [facility]) did back surgery for Herniated and Bulging discs in [place], [place]. 3 1/2 yrs ago per pt. - Gastrointestinal Hx Gastrointestinal Disorders: Yes (Hx of Cholecystectomy 35 yrs ago. Appendectomy.) Hx Diverticulitis: Yes Hx Gall Bladder Disease: Yes Hx Gastroesophageal Reflux: Yes Hx Gastrointestinal Ulcer: Yes - Genitourinary/Gynecological Hx Genitourinary Disorders: No - Psychiatric Hx Psychophysiologic Disorder: Yes Hx Anxiety: Yes (Takes Xanax 1mg po tid.) Hx Substance Use: No - Surgical History Hx Appendectomy: Yes Hx Cardiac Catheterization: Yes Hx Cholecystectomy: Yes (35 yrs ago.) Hx Coronary Stent: Yes (8yrs ago at [facility]. 5yrs ago x2.) Hx Musculoskeletal Surgery: Yes (Back surgery for herniated and bulging discs. 3 1/2 yrs ago Hx of Sciatica.) - Anesthesia Hx Anesthesia Reactions: No Hx Malignant Hyperthermia: No - Suicidal Assessment Feels Threatened In Home Enviroment: No Family/Social History - Physician Review Nursing Documentation Reviewed: Yes Family/Social History: No Known Family HX Smoking Status: Never Smoked Hx Alcohol Use: No Hx Substance Use: No Hx Substance Use Treatment: No Allergies/Home Meds Allergies/Adverse Reactions: Allergies pantoprazole sodium [From Protonix] Allergy (Verified 02/07/17 13:31) ANAPHYLAXIS Home Medications: Home Meds Medication Instructions Recorded Confirmed ALPRAZolam [Xanax] 1 mg PO TID 06/06/17 06/06/17 Aspirin [Ecotrin] 81 mg PO DAILY 06/06/17 06/06/17 Atorvastatin [Lipitor] 10 mg PO DIN 06/06/17 06/06/17 Metoprolol Tartrate [Lopressor] 50 mg PO BID 06/06/17 06/06/17 Prasugrel [Effient] 10 mg PO DAILY 06/06/17 06/06/17 Ramipril [Altace] 2.5 mg PO DAILY 06/06/17 06/06/17 Sucralfate [Carafate Tab] 1 gm PO BID 06/06/17 06/06/17 oxyCODONE/Acetaminophen [Percocet 1 tab PO TID PRN 06/06/17 06/06/17 5/325 mg Tab] Review of Systems - Physician Review All systems were reviewed & negative as marked: Yes - Review of Systems Constitutional: Normal. absent: Fatigue, Fevers Respiratory: Normal. absent: SOB, Cough, Sputum Cardiovascular: Chest Pain, Palpitations Gastrointestinal: Normal. absent: Abdominal Pain, Diarrhea, Nausea, Vomiting Genitourinary Male: Normal Neurological: Normal. absent: Headache, Dizziness Psychiatric: Normal Physical Exam Vital Signs Reviewed: Yes Vital Signs Temp Pulse Resp BP Pulse Ox 06/06/17 05:02 58 L 14 129/85 97 06/06/17 02:34 62 14 150/86 98 06/06/17 00:50 95 H 16 139/86 98 06/05/17 21:00 97.5 F L 79 18 186/97 H 96 Temperature: Afebrile Blood Pressure: Hypertensive Pulse: Regular Respiratory Rate: Normal Appearance: Positive for: Well-Appearing, Non-Toxic, Comfortable Pain Distress: None Mental Status: Positive for: Alert and Oriented X 3 - Systems Exam Head: Present: Atraumatic, Normocephalic Pupils: Present: PERRL Extroacular Muscles: Present: EOMI Conjunctiva: Present: Normal Mouth: Present: Moist Mucous Membranes Respiratory/Chest: Present: Clear to Auscultation, Good Air Exchange. No: Respiratory Distress, Accessory Muscle Use Cardiovascular: Present: Regular Rate and Rhythm, Normal S1, S2. No: Murmurs Abdomen: Present: Normal Bowel Sounds. No: Tenderness, Distention, Peritoneal Signs, Rebound, Guarding Upper Extremity: Present: Normal Inspection. No: Cyanosis, Edema Lower Extremity: Present: Normal Inspection. No: Edema Neurological: Present: GCS=15, CN II-XII Intact, Speech Normal, Motor Func Grossly Intact, Normal Sensory Function Skin: Present: Warm, Dry, Normal Color. No: Rashes Psychiatric: Present: Alert, Oriented x 3, Normal Insight, Normal Concentration Medical Decision Making ED Course and Treatment: 06/05/17 21:31 Impression: A 77 year old male who presents to the emergency department complaining of palpitations and chest pain. Plan: -- EKG -- labs -- Chest X-ray -- Urinalysis -- Reassess and disposition Progress Notes: 06/05/17 21:22 EKG reviewed by me: NSR @ 71 bpm. RBBB. Left anterior fascicular block. Bifascicular block. 06/06/17 01:15 Case discussed with who is aware and agrees with the plan to observe patient at telemetry for chest pain. Accepts patient under his service. - Lab Interpretations Lab Results: 06/05/17 23:18 06/05/17 23:18 Lab Results 06/05/17 23:18: Sodium 130 L, Potassium 3.7, Chloride 95 L, Carbon Dioxide 26, Anion Gap 13, BUN 16, Creatinine 0.6, Est GFR ( Amer) > 60, Est GFR (Non- Af Amer) > 60, Random Glucose 79, Calcium 9.3, Magnesium 2.1, Total Bilirubin 0.5, AST 39, ALT 33, Alkaline Phosphatase 57, Lactate Dehydrogenase 506, Total Creatine Kinase 136, Troponin I < 0.01 D, Total Protein 7.3, Albumin 4.1, Globulin 3.1, Albumin/Globulin Ratio 1.3 06/05/17 23:18: Urine Color Yellow, Urine Appearance Clear, Urine pH 7.0, Ur Specific [place] 1.010, Urine Protein Negative, Urine Glucose (UA) Negative, Urine Ketones Negative, Urine Blood Trace-intact H, Urine Nitrate Negative, Urine Bilirubin Negative, Urine Urobilinogen 0.2, Ur Leukocyte Esterase Negative , Urine RBC 0 - 2, Urine WBC 0 - 2, Ur Epithelial Cells 0 - 2 06/05/17 23:18: WBC 6.3 D, RBC 4.75, Hgb 15.5, Hct 43.7, MCV 92.0, MCH 32.6, MCHC 35.5, RDW 12.8, Plt Count 140, MPV 9.4, Gran % 51.0, Lymph % (Auto) 30.0, Kern % (Auto) 14.5 H, Eos % (Auto) 4.3, Baso % (Auto) 0.2, Gran # 3.24, Lymph # 1.9, Kern # 0.9 H, Eos # 0.3, Baso # 0.01 I have reviewed the lab results: Yes - RAD Interpretation Radiology Orders: 06/05/17 21:27 CHEST PORTABLE [RAD] Stat Retail Salesman: ED Physician - EKG Interpretation Interpreted by ED Physician: Yes Type: 12 lead EKG - Medication Orders Current Medication Orders: Discontinued Medications Alprazolam (Xanax) 1 mg PO TID PRN; Protocol PRN Reason: Anxiety Last Admin: 06/06/17 14:45 Dose: 1 mg Aspirin (Ecotrin) 81 mg PO DAILY [facility] Last Admin: 06/06/17 11:11 Dose: 81 mg Atorvastatin Calcium (Lipitor) 10 mg PO DIN [facility] Famotidine (Pepcid) 40 mg PO BID [facility] Metoprolol Tartrate (Lopressor) 25 mg PO BID [facility] Last Admin: 06/06/17 11:12 Dose: 25 mg Morphine Sulfate (Morphine) 2 mg IVP STAT STA Stop: 06/06/17 00:12 Last Admin: 06/06/17 02:29 Dose: 2 mg Ondansetron HCl (Zofran Inj) 4 mg IVP ONCE ONE Stop: 06/06/17 08:49 Last Admin: 06/06/17 09:19 Dose: 4 mg Oxycodone/Acetaminophen (Percocet 5/325 Mg Tab) 1 tab PO Q8H PRN PRN Reason: Pain, moderate (4-7) Stop: 06/09/17 10:43 Last Admin: 06/06/17 11:11 Dose: 1 tab Re-Assess: SHAHID Pain Assessment Document 06/06/17 12:11 DC (Rec: 06/06/17 12:48 DC [id number]) Pain Reassessment Is this a pain reassessment? Yes Presence of Pain Presence of Pain Yes Pain Scale Used Pain Scale Used Numeric Location Pain Location Body Site Back Description Intensity of Pain at present 2 Prasugrel (Effient) 10 mg PO DAILY [facility] Last Admin: 06/06/17 11:11 Dose: 10 mg Ramipril (Altace) 2.5 mg PO DAILY [facility] Last Admin: 06/06/17 11:11 Dose: 2.5 mg Sucralfate (Carafate Tab) 1 gm PO 0630,1130,1630,2200 [facility] Last Admin: 06/06/17 11:11 Dose: 1 gm - Scribe Statement The provider has reviewed the documentation as recorded by the Mylesibbilly Zuñiga Provider Attestation: Provider Scribe Attestation: All medical record entries made by the Mylesibbilly were at my direction and personally dictated by me. I have reviewed the chart and agree that the record accurately reflects my personal performance of the history, physical exam, medical decision making, and the department course for this patient. I have also personally directed, reviewed, and agree with the discharge instructions and disposition. Disposition/Present on Arrival - Present on Arrival Any Indicators Present on Arrival: No History of DVT/PE: No History of Uncontrolled Diabetes: No Urinary Catheter: No History of Decub. Ulcer: No History Surgical Site Infection Following: None - Disposition Have Diagnosis and Disposition been Completed?: Yes Diagnosis: Chest pain Disposition: HOSPITALIZED Disposition Time: 01:15 Condition: FAIR
[2017-06-05 23:41] LABS: ALB/GLOB RATIO 1.3 (1.1-1.8); ALBUMIN 4.1 g/dL (3.0-4.8); ALT/SGPT 33 U/L (7-56); AST/SGOT 39 U/L (15-59); BLOOD UREA NITROGEN 16 mg/dL (7-21); CALCIUM 9.3 mg/dL (8.4-10.5); GFR AFRICAN-AMERICAN > 60; GFR NON-AFRICAN AMERICAN > 60; MAGNESIUM 2.1 mg/dL (1.7-2.2)
[2017-06-05 23:42] LABS: BASO # 0.01 K/mm3 (0.0-2.0); BASO % 0.2 % (0.0-3.0); EOS # 0.3 (0.0-0.7); EOS % 4.3 % (1.5-5.0); GRAN # 3.24 (1.4-6.5); HEMOGLOBIN 15.5 gm/dL (14.0-18.0); LYMPH # 1.9 (1.2-3.4); MEAN CORPUSCULAR HEMOGLOBIN 32.6 pg (25.0-35.0); MEAN CORPUSCULAR HGB CONC 35.5 g/dl (31.0-37.0); MEAN PLATELET VOLUME 9.4 fl (7.0-11.0); MONO # 0.9 (0.1-0.6); MONO % 14.5 % (1.0-6.0); PLATELET COUNT 140 10^3/uL (120.0-450.0); RBC 4.75 10^6/uL (3.5-6.1); RED CELL DISTRIBUTION WIDTH 12.8 % (11.5-14.5); WHITE BLOOD COUNT 6.3 10^3/ul (4.5-11.0)
[2017-06-05 23:54] LABS: URINE BILIRUBIN NEGATIVE (NEGATIVE); URINE BLOOD TRACE-INTACT (NEGATIVE); URINE GLUCOSE (UA) NEGATIVE (NEGATIVE); URINE LEUKOCYTE ESTERASE NEGATIVE Leu/uL (NEGATIVE); URINE NITRATE NEGATIVE (NEGATIVE); URINE PROTEIN NEGATIVE mg/dL (<30 mg/dL); URINE UROBILINOGEN 0.2 E.U./dL (<1 E.U./dL)
[2017-06-05 23:55] LABS: URINE APPEARANCE CLEAR (CLEAR); URINE COLOR YELLOW (YELLOW)
[2017-06-06 00:01] LABS: URINE EPITHELIAL CELLS 0 - 2 /hpf (0-5); URINE RBC 0 - 2 /hpf (0-2); URINE WBC 0 - 2 /hpf (0-6)
[2017-06-06 00:09] LABS: TROPONIN I < 0.01 ng/mL
[2017-06-06] MEDS ORDERED: Morphine 2 mg/ml ISec IVP STA (00:11)
[2017-06-06 05:49] VITALS: BMI 24.8
[2017-06-06 06:10] VITALS: O2SAT 100
--- NOTE | 2017-06-06 08:04 | RAD ---
HISTORY: cp COMPARISON: 03/06/2017 FINDINGS: LUNGS: No active pulmonary disease. The left infrahilar bronchovascular markings probably normal - given the current projection (less rotation on current exam) PLEURA: Possible interval right minimal pleural effusion no pneumothorax apparent. CARDIOVASCULAR: Mild left ventricular enlargement configuration. Thoracic aortic ectasia and calcification. No interval gross pulmonary vascular congestion or interval change here OSSEOUS STRUCTURES: Thoracic spondylosis. Currently rightward convexity of the lumbar spine segment -some of this likely positional -given prior appearance VISUALIZED UPPER ABDOMEN: Normal. OTHER FINDINGS: Asymmetrically mildly elevated right hemidiaphragm unchanged IMPRESSION: No interval consolidation. Possible minimal right pleural effusion. Mild cardiomegaly left ventricular enlargement configuration and aortic atherosclerotic vascular disease
[2017-06-06 09:13] LABS: ALB/GLOB RATIO 1.3 (1.1-1.8); ALBUMIN 3.9 g/dL (3.0-4.8); ALT/SGPT 39 U/L (7-56); AST/SGOT 36 U/L (15-59); BLOOD UREA NITROGEN 12 mg/dL (7-21); GFR AFRICAN-AMERICAN > 60; GFR NON-AFRICAN AMERICAN > 60; HDL CHOLESTEROL 52 mg/dL (29-60); LDL CHOLESTEROL 80 mg/dL (0-129); MAGNESIUM 2.1 mg/dL (1.7-2.2)
[2017-06-06] MEDS ORDERED: Oxycodone/Acetaminophen 5/325 mg Tab PO PRN (10:42)
--- NOTE | 2017-06-06 10:45 | CP.PCM.PCO ---
Physician Communication Note - Physician Communication Note Physician Communication Note: Chest pain post [place]-Stent--Stable now
[2017-06-06 11:38] LABS: TROPONIN I < 0.01 ng/mL
--- NOTE | 2017-06-06 12:19 | CARD ---
APPROVED REPORT EKG Measurement Heart [id number] MS 182P22 [id number] <Conclusion> Normal sinus rhythm Right bundle branch block Left anterior fascicular block Bifascicular block Moderate voltage criteria for LVH, may be normal variant Cannot rule out Septal infarct, age undetermined Abnormal ECG
--- NOTE | 2017-06-06 12:33 | CARD ---
APPROVED REPORT EKG Measurement Heart [id number] [place] 200P36 [id number] <Conclusion> Normal sinus rhythm Right bundle branch block Left anterior fascicular block Bifascicular block Moderate voltage criteria for LVH, may be normal variant Cannot rule out Septal infarct, age undetermined Abnormal ECG
[2017-06-06 12:39] VITALS: BP 130/69; PULSE 59; RESP 20; TEMP 97.4
[2017-06-06 14:52] LABS: TROPONIN I < 0.01 ng/mL
--- NOTE | 2017-06-06 23:37 | HP ---
CHIEF COMPLAINT: Chest pain - palpitation. HISTORY OF PRESENT ILLNESS: The patient is a 77-year-old male, known coronary artery disease, status post myocardial infarction (NSTEMI) 3 moths ago with stent placement. During the night, he developed palpitation and progressed to left-sided chest pain and he came to the emergency room where he was recommended for observation. He was placed on appropriate temporizing measures and cardiac consultation obtained with Dr. Chari Whitlock. PAST MEDICAL HISTORY: 1. Multiple coronary stents with coronary artery disease - strong family history of 5 brothers all before the age of 60 from coronary artery disease. 2. Extreme anxiety neurosis, taking 1 mg of Xanax 3 times a day. 3. Significant gastroesophageal reflux, taking Prevacid and Carafate 3 times a day. 4. Spinal stenosis, status post laminectomy in 2013. ALLERGIES: PROTONIX, SEVERE HYPOTENSION REACTION. MEDICATIONS: Xanax 1 mg t.i.d., Lipitor 10 mg daily, aspirin 81, Toprol 50 b.i.d., Carafate 1 t.i.d., Prevacid 1 daily. PHYSICAL EXAMINATION VITAL SIGNS: Normal blood pressure and pulse. HEAD, EYES, EARS, NOSE, AND THROAT: Within normal limits. Conjunctivae red, sclerae anicteric. Vision and hearing normal. Wearing corrective lenses. NECK: Without adenopathy or bruit. LUNGS: Clear. HEART: Sinus rhythm without ectopy or gallop. ABDOMEN: Soft, minimal left upper quadrant tenderness. RECTAL: Negative Hemoccult. Enlarged prostate. BACK: Healed scar. EXTREMITIES: 1+ edema. Pulses in the feet are palpable. NEUROLOGIC: Otherwise unremarkable say for mildly ataxic gait. IMPRESSION: Upon admission is chest pain - recurrent angina pectoris (hypertensive coronary artery disease). RECOMMENDATION: Resume all medications and diet. The remainder of recommendation per cardiology, Dr. Whitlock. This dictation will be signed without being read. Mark Shearer MD
--- NOTE | 2017-06-07 02:03 | CON ---
DATE: 06/06/2017 CONSULT SERVICE: Cardiology. REASON FOR CONSULTATION: Followup chest pain, palpitation, history of coronary artery disease. BRIEF CLINICAL HISTORY: This is a 77-year-old male with a past medical history significant for multiple PTCA's, coronary artery disease, multiple admissions with MO as well as multiple admissions with chest pain, nonspecific, who yesterday went to fix his car and while he was walking, felt a little funny sensation in the chest, so later on went home, had dinner, but still felt some funny sensation, very light chest pain, not sure whether it is chest pain or just a funny sensation or fluttering, so came to the emergency room. Denies any chest pain now, but feels nauseous this morning. PAST MEDICAL HISTORY: Significant for coronary artery status post multiple stent. Last PTCA on 03/07/2017 where the patient had stenting of OM1 and mid RCA was done with a drug eluting stent dated 03/07/2017. History of multiple MO, history of multiple non-STEMI, history of multiple admissions with chest pain. Previous cardiac workup is as follows: Patient's last cardiac catheterization was on 03/07/2017 where the patient was admitted with non-STEMI, underwent cardiac catheterization and a stenting was done in OM1 and RCA. Preserved LV function ejection fraction *------* range of 25. All previous stent was patent at that time. Patient had also echocardiography done at 03/07/2017. Ejection fraction 55-60%, moderate to severe aortic regurgitation, [id number] mitral regurgitation, mild tricuspid regurgitation, RV systolic pressure of 42. Mild to moderate pulmonary insufficiency status post non-STEMI, status post 2 vessels, PTCA at that time. REVIEW OF SYSTEMS: As per HPI. CURRENT MEDICATIONS: He is taking metoprolol 50 mg twice a day, aspirin 81 mg, Effient 10 mg daily, ramipril 2.5 mg daily, Carafate 1 g four times a day, Percocet 1 pack tablet q.6, and Xanax. PHYSICAL EXAMINATION: As follows: VITAL SIGNS: Temperature afebrile, heart rate 61, blood pressure 133/77. HEENT: PERRLA intact. NECK: Supple. No carotid bruit. No thyromegaly. CHEST: Clear to auscultation. HEART: S1 and S2, regular. ABDOMEN: Soft. EXTREMITIES: Clubbing and cyanosis negative. LABORATORY DATA: EKG shows normal sinus rhythm with right bundle-branch block and left anterior hemiblock. Blood workup as follows: WBC 6.3, hemoglobin 15.5, hematocrit 43.7, platelet count 140. Chemistry shows sodium 130, potassium 3.9, chloride 100, carbon dioxide 25, anion gap of 12, BUN 15, creatinine 0.5. Troponin 0.01. IMPRESSION: Atypical chest pain, but given the multiple risk factors for coronary artery disease, multiple stents; most recently on 03/07/2017, patient had a stent in OM1 and RCA, I would suggest to rule out ischemia, rule out myocardial infarction. We will add CPK, troponin now and at 12 noon, *------* is negative, possible discharge home. We will resume aspirin, resume Effient, resume ramipril, resume metoprolol, resume Carafate, and we will monitor him closely. We will follow with you. Thank you Dr. Nuñez for providing the opportunity in taking care of Wilmar Haywood. We will follow with you. Harley Whitlock MD
== END 2017-06-06 18:43 | disposition home or self-care (01) ==
LOC: ED 20:50 → ERH 06-06 01:15 → 2RNO 06-06 05:09
PROVIDERS: ADMIT Surgery; ATTEND Surgery
DX: R07.89 Other chest pain (principal); I25.119 Atherosclerotic heart disease of native coronary artery with unspecified angina pectoris; I45.2 Bifascicular block; I08.3 Combined rheumatic disorders of mitral, aortic and tricuspid valves; J98.4 Other disorders of lung; I25.2 Old myocardial infarction; Z95.5 Presence of coronary angioplasty implant and graft; Z79.82 Long term (current) use of aspirin
CPT/HCPCS: 36415; 71010; 80053; 80061; 81001; 82550; 83036; 83615; 83735; 84100; 84443; 84484; 85025; 93005; 96374; 99285; G0378; J2270; J2405

== ENCOUNTER 2018-05-20 19:28 | Observation (INO) | payer MEDICARE, BC ==
[2018-05-20] MEDS ORDERED: Nitroglycerin 2% Ointment Foilpak UD TOP STA (19:41)
[2018-05-20] MEDS ORDERED: Morphine 2 mg/ml ISec IVP STA (19:41)
[2018-05-20 19:42] VITALS: BMI 25.2
[2018-05-20 20:08] LABS: HEMOGLOBIN 14.6 g/dL (14.0-18.0); MEAN CELL VOLUME 90.1 fl (80.0-105.0); MEAN CORPUSCULAR HEMOGLOBIN 32.1 pg (25.0-35.0); MEAN CORPUSCULAR HGB CONC 35.6 g/dl (31.0-37.0); MEAN PLATELET VOLUME 9.5 fl (7.0-11.0); RBC 4.55 10^6/uL (3.5-6.1); RED CELL DISTRIBUTION WIDTH 12.5 % (11.5-14.5); WHITE BLOOD COUNT 7.6 10^3/ul (4.5-11.0)
[2018-05-20 20:17] LABS: INR 1.21 (0.93-1.08); PARTIAL THROMBOPLASTIN TIME 28.7 Seconds (25.1-36.5); PROTHROMBIN TIME 13.8 SECONDS (9.4-12.5)
[2018-05-20 20:18] LABS: ALB/GLOB RATIO 1.2 (1.1-1.8); ALBUMIN 3.7 g/dL (3.0-4.8); ALT/SGPT 31 U/L (7-56); AST/SGOT 25 U/L (17-59); BLOOD UREA NITROGEN 12 mg/dL (7-21); CALCIUM 8.8 mg/dL (8.4-10.5); GFR AFRICAN-AMERICAN > 60; GFR NON-AFRICAN AMERICAN > 60
[2018-05-20 20:30] LABS: B-TYPE NATRIURETIC PEPTIDE 127 pg/mL (0-450); TROPONIN I < 0.01 ng/mL
--- NOTE | 2018-05-20 21:25 | ED PDOC ---
Arrival/HPI - General Chief Complaint: Chest Pain Time Seen by Provider: 05/20/18 19:32 Historian: Patient - History of Present Illness Narrative History of Present Illness (Text): 05/20/18 19:40 Wilmar Haywood is a 78 year old male, whose past medical history includes CAD with multiple coronary stents, anxiety, GERD, spinal stenosis s/p laminectomy, who presents to the Emergency department complaining of chest discomfort today. Patient describes chest pain as pressure-like sensation and notes discomfort began before eating and increased after eating. Patient denies any shortness of breath, back pain, abdominal pain, or any other complaints. Patient presented to ER due to his strong cardiac history. Patient states he is currently feeling better with some minimal chest discomfort. PMD: Dr. Willy Shearer Symptom Onset: Gradual Symptom Course: Unchanged Activities at Onset: Eating Context: Home Past Medical History - Provider Review Nursing Documentation Reviewed: Yes - Past History Past History: No Previous - Infectious Disease Hx of Infectious Diseases: None - Tetanus Immunization Tetanus Immunization: Unknown - Cardiac Hx Cardiac Disorders: Yes (Stent occluded. Hyperlipidemia. Hypercholesterolemia. ) Hx Angina: Yes Hx Hypertension: Yes Hx Peripheral Vascular Disease: Yes Other/Comment: Family hx of 5 brothers befor the age of 60 yrs old from heart disease. Heart disease runs on the paternal side. - Pulmonary Hx Respiratory Disorders: No - Neurological Hx Neurological Disorder: No - HEENT Hx HEENT Disorder: No - Renal Hx Renal Disorder: No - Endocrine/Metabolic Hx Endocrine Disorders: No - Hematological/Oncological Hx Blood Disorders: No - Integumentary Hx Dermatological Disorder: No - Musculoskeletal/Rheumatological Hx Musculoskeletal Disorders: Yes (Hx of Sciatica. Hx of Bulging Disks.) Hx Arthritis: Yes Hx Back Pain: Yes Hx Falls: No Hx Herniated Disk: Yes Hx Spinal Stenosis: Yes Hx Unsteady Gait: Yes (Ambulates w/ cane when outside.) Other/Comment: Dr. Quick (from [facility]) did back surgery for Herniated and Bulging discs in [place], [place]. 3 1/2 yrs ago per pt. - Gastrointestinal Hx Gastrointestinal Disorders: Yes (Hx of Cholecystectomy 35 yrs ago. Appendectomy.) Hx Diverticulitis: Yes Hx Gall Bladder Disease: Yes Hx Gastroesophageal Reflux: Yes Hx Gastrointestinal Ulcer: Yes - Genitourinary/Gynecological Hx Genitourinary Disorders: No - Psychiatric Hx Psychophysiologic Disorder: Yes Hx Anxiety: Yes (Takes Xanax 1mg po tid.) Hx Substance Use: No - Surgical History Hx Appendectomy: Yes Hx Cardiac Catheterization: Yes Hx Cholecystectomy: Yes (35 yrs ago.) Hx Coronary Stent: Yes (8yrs ago at [facility]. 5yrs ago x2.) Hx Musculoskeletal Surgery: Yes (Back surgery for herniated and bulging discs. 3 1/2 yrs ago Hx of Sciatica.) - Anesthesia Hx Anesthesia Reactions: No Hx Malignant Hyperthermia: No - Suicidal Assessment Feels Threatened In Home Enviroment: No Family/Social History - Physician Review Nursing Documentation Reviewed: Yes Family/Social History: Unknown Family HX Smoking Status: Never Smoked Hx Alcohol Use: No Hx Substance Use: No Hx Substance Use Treatment: No Allergies/Home Meds Allergies/Adverse Reactions: Allergies pantoprazole sodium [From Protonix] Allergy (Verified 05/20/18 19:41) ANAPHYLAXIS Home Medications: Home Meds Medication Instructions Recorded Confirmed ALPRAZolam [Xanax] 1 mg PO TID 06/06/17 05/20/18 Aspirin [Ecotrin] 81 mg PO DAILY 06/06/17 05/20/18 Atorvastatin [Lipitor] 10 mg PO DIN 06/06/17 05/20/18 Metoprolol Tartrate [Lopressor] 50 mg PO BID 06/06/17 05/20/18 Prasugrel [Effient] 10 mg PO DAILY 06/06/17 05/20/18 Ramipril [Altace] 2.5 mg PO DAILY 06/06/17 05/20/18 Sucralfate [Carafate Tab] 1 gm PO BID 06/06/17 05/20/18 oxyCODONE/Acetaminophen [Percocet 1 tab PO TID PRN 06/06/17 05/20/18 5/325 mg Tab] Review of Systems - Physician Review All systems were reviewed & negative as marked: Yes - Review of Systems Constitutional: Normal. absent: Fevers Eyes: Normal ENT: Normal Respiratory: Normal. absent: SOB, Cough Cardiovascular: Chest Pain Gastrointestinal: Normal. absent: Abdominal Pain, Diarrhea, Nausea, Vomiting Genitourinary Male: Normal. absent: Dysuria, Frequency, Hematuria, Urinary Output Changes Musculoskeletal: Normal. absent: Back Pain, Neck Pain Skin: Normal. absent: Rash Neurological: Normal. absent: Headache, Dizziness Endocrine: Normal Hemo/Lymphatic: Normal Psychiatric: Normal Physical Exam Vital Signs Reviewed: Yes Vital Signs Temp Pulse Resp BP Pulse Ox 05/20/18 21:41 56 L 18 148/82 99 05/20/18 19:42 188/92 H 05/20/18 19:36 97.6 F 98 H 20 100 Temperature: Afebrile Blood Pressure: Normal Pulse: Regular Respiratory Rate: Normal Appearance: Positive for: Well-Appearing, Non-Toxic, Comfortable Pain Distress: None Mental Status: Positive for: Alert and Oriented X 3 - Systems Exam Head: Present: Atraumatic, Normocephalic Pupils: Present: PERRL Extroacular Muscles: Present: EOMI Conjunctiva: Present: Normal Mouth: Present: Moist Mucous Membranes Neck: Present: Normal Range of Motion. No: Meningeal Signs, MIDLINE TENDERNESS , Paraspinal Tenderness Respiratory/Chest: Present: Clear to Auscultation, Good Air Exchange. No: Respiratory Distress, Accessory Muscle Use Cardiovascular: Present: Regular Rate and Rhythm, Normal S1, S2. No: Murmurs Abdomen: No: Tenderness, Distention, Peritoneal Signs Back: Present: Normal Inspection. No: CVA Tenderness, Midline Tenderness, Paraspinal Tenderness Upper Extremity: Present: Normal Inspection. No: Cyanosis, Edema Lower Extremity: Present: Normal Inspection. No: Edema Neurological: Present: GCS=15, CN II-XII Intact, Speech Normal, Motor Func Grossly Intact, Normal Sensory Function, Normal Cerebellar Funct Skin: Present: Warm, Dry, Normal Color. No: Rashes Psychiatric: Present: Alert, Oriented x 3, Normal Insight, Normal Concentration Medical Decision Making ED Course and Treatment: 05/20/18 19:40 Impression: 78 year old male complaining of pressure-like chest discomfort today before eating, worse after eating. Plan: -- EKG -- Chest X-ray -- Labs, cardiac enzymes, BNP -- Aspirin -- Morphine -- Nitroglycerin -- Reassess and disposition Prior Visits: Notes and results from previous visits were reviewed. On 06/05/2017, pt was seen in the Emergency department for palpitations and left -sided chest pain. Pt was admitted to the hospital for further evaluation. Progress Notes: Reviewed EKG, NSR at 69 bpm. Occasional PVC. RBBB. LAHB. Non-specific ST/T changes. 05/20/18 21:50 Chest X-ray reviewed, shows no acute processes. 05/20/18 22:[address] Shearer, who is aware and agrees with plan. Accepts pt in to his service. Pt will go to Telemetry observation for chest pain. - Lab Interpretations Lab Results: 05/20/18 20:03 05/20/18 20:03 Lab Results 05/20/18 20:03: WBC 7.6, RBC 4.55, Hgb 14.6, Hct 41.0 L, MCV 90.1, MCH 32.1, MCHC 35.6, RDW 12.5, Plt Count 164, MPV 9.5 05/20/18 20:03: Sodium 131 L, Potassium 4.0, Chloride 94 L, Carbon Dioxide 28, Anion Gap 13, BUN 12, Creatinine 0.6 L, Est GFR ( Amer) > 60, Est GFR ( Non-Af Amer) > 60, Random Glucose 109, Calcium 8.8, Total Bilirubin 0.6, AST 25 , ALT 31, Alkaline Phosphatase 64, Lactate Dehydrogenase 427, Total Creatine Kinase 98, Troponin I < 0.01, NT-Pro-B Natriuret Pep 127, Total Protein 6.7, Albumin 3.7, Globulin 3.0, Albumin/Globulin Ratio 1.2 05/20/18 20:03: PT 13.8 H, INR 1.21 H, APTT 28.7 I have reviewed the lab results: Yes - RAD Interpretation Radiology Orders: 05/20/18 19:40 CHEST PORTABLE [RAD] Stat Service Coordinator: ED Physician - EKG Interpretation Interpreted by ED Physician: Yes Type: 12 lead EKG - Medication Orders Current Medication Orders: Discontinued Medications Aspirin (Aspirin) 325 mg PO ONCE STA Stop: 05/20/18 19:42 Last Admin: 05/20/18 20:03 Dose: Morphine Sulfate (Morphine) 2 mg IVP STAT STA Stop: 05/20/18 19:42 Last Admin: 05/20/18 20:03 Dose: 2 mg MAR Pain Assessment Document 05/20/18 20:03 JOSE (Rec: 05/20/18 20:03 JOSE [id number]) Pain Reassessment Is this a pain reassessment? Yes IVP Administration Document 05/20/18 20:03 JOSE (Rec: 05/20/18 20:03 JOSE [id number]) Charges for Administration # of IVP Administrations 1 Nitroglycerin (Nitro-Bid 2% Oint) 1 ea TOP ONCE STA Stop: 05/20/18 19:42 Last Admin: 05/20/18 20:03 Dose: 1 ea Ondansetron HCl (Zofran Inj) 4 mg IVP ONCE ONE Stop: 05/20/18 21:50 Last Admin: 05/20/18 22:05 Dose: 4 mg IVP Administration Document 05/20/18 22:05 JOSE (Rec: 05/20/18 22:05 JOSE [id number]) Charges for Administration # of IVP Administrations 1 - Scribe Statement The provider has reviewed the documentation as recorded by the Mylesibbilly Nava Provider Scribe Attestation: All medical record entries made by the Scribe were at my direction and personally dictated by me. I have reviewed the chart and agree that the record accurately reflects my personal performance of the history, physical exam, medical decision making, and the department course for this patient. I have also personally directed, reviewed, and agree with the discharge instructions and disposition. Disposition/Present on Arrival - Present on Arrival Any Indicators Present on Arrival: No History of DVT/PE: No History of Uncontrolled Diabetes: No Urinary Catheter: No History of Decub. Ulcer: No History Surgical Site Infection Following: None - Disposition Have Diagnosis and Disposition been Completed?: Yes Diagnosis: Chest pain Disposition: HOSPITALIZED Disposition Time: 22:30 Patient Problems: Current Active Problems Problem Status Onset Chest pain Acute Condition: STABLE Discharge Instructions (ExitCare): Chest Pain (ED) Referrals: Mark Shearer MD [Primary Care Provider] - Follow up with primary Forms: [email or web address] (German)
[2018-05-21] MEDS ORDERED: Alum-Mag Hydrox-Simethicone Susp (30 mL) PO ONE (03:22)
[2018-05-21] MEDS ORDERED: Oxycodone/Acetaminophen 5/325 mg Tab PO PRN ×2 (04:46→08:41)
--- NOTE | 2018-05-21 04:48 | CP.PCM.PCO ---
Physician Communication Note - Physician Communication Note Physician Communication Note: c/orecurring substernal chest pressure-Plan Observe
[2018-05-21 06:23] VITALS: RESP 20; O2SAT 96
--- NOTE | 2018-05-21 08:24 | RAD ---
HISTORY: chest pain COMPARISON: 06/05/2017. FINDINGS: LUNGS: The lungs are well inflated and clear. PLEURA: No significant pleural effusion identified, no pneumothorax apparent. CARDIOVASCULAR: Normal. OSSEOUS STRUCTURES: No significant abnormalities. VISUALIZED UPPER ABDOMEN: Normal. OTHER FINDINGS: None. IMPRESSION: No active pulmonary disease.
[2018-05-21 09:53] LABS: ALB/GLOB RATIO 1.3 (1.1-1.8); ALBUMIN 3.7 g/dL (3.0-4.8); ALT/SGPT 33 U/L (7-56); AST/SGOT 31 U/L (17-59); BLOOD UREA NITROGEN 11 mg/dL (7-21); CALCIUM 8.6 mg/dL (8.4-10.5); GFR AFRICAN-AMERICAN > 60; GFR NON-AFRICAN AMERICAN > 60; HDL CHOLESTEROL 40 mg/dL (29-60)
[2018-05-21] MEDS ORDERED: Famotidine 20mg/50ml 20 MG in Premixed IV 50 EA IVPB SCH (10:00)
[2018-05-21 10:03] LABS: LDL CHOLESTEROL 59 mg/dL (0-129)
--- NOTE | 2018-05-21 10:15 | CARD ---
APPROVED REPORT EKG Measurement Heart [id number] <Conclusion> Sinus rhythm with premature ventricular complexes Right bundle branch block Left anterior fascicular block Bifascicular block Cannot rule out Septal infarct, age undetermined No change except PVCs now present
[2018-05-21] MEDS ORDERED: Alum-Mag Hydrox-Simethicone Susp (30 mL) PO STA (10:22)
--- NOTE | 2018-05-21 10:22 | CP.PCM.PCO ---
Physician Communication Note - Physician Communication Note Physician Communication Note: GERD/CAD/Anxiety-RxBID [id number]/? DCperCVS
[2018-05-21 12:36] LABS: TROPONIN I 0.01 ng/mL
[2018-05-21 14:12] LABS: TROPONIN I < 0.01 ng/mL
[2018-05-21 14:51] VITALS: BP 109/62; PULSE 77
[2018-05-21 15:29] VITALS: TEMP 98.5
--- NOTE | 2018-05-21 21:24 | CON ---
DATE: 05/21/2018 SERVICE: Cardiology. REASON FOR CONSULTATION AND FOLLOWUP: Cardiac evaluation, admitted with chest pain. History of coronary artery disease, history of multiple stents in the past. BRIEF CLINICAL HISTORY: This is a 78-year-old male with past medical history significant for coronary artery disease, status post multiple non-STEMI, STEMI, multiple cardiac catheterization, who said that around yesterday morning, the patient has some pressure type of chest pain and found to have a lot of acid reflux, told the , got some medications, but did not get better, so by night some pressure and a lot of acid reflux, so decided to come to the emergency room, thought that he was getting heart attack. Denies any further episode of chest pain while in the hospital. PAST HISTORY: Significant for STEMI, non-STEMI, multiple stents in the past, last stent PTCA on 11/10/2011, last cardiac catheterization in 02/2014. Medical treatment recommended. Past history significant for gastroesophageal reflux, hypertension. SOCIAL HISTORY: Denies any smoking. Denies any history of alcohol abuse. PREVIOUS CARDIAC WORKUP: As follows: As mentioned, the patient has multiple stents, last stent on 11/10/2011. Last cardiac catheterization in 02/2014, at . Chronic ST segment elevation, V2, V3. Last echo in on 03/08/2014, ejection fraction 55%. Last echo in office was okay. The patient had a PAD. Also, PTCA of right femoral artery was done on 03/12/2014, after the patient had access for cardiac catheterization at [facility], history of spinal stenosis, history of back pain, history of bad gastroesophageal reflux. ALLERGIES: ALLERGIC TO . REVIEW OF SYSTEMS: As per HPI. CURRENT MEDICATIONS: The patient at home is taking oxycodone, sucralfate 1 g twice a day, ramipril 2.5 mg daily. Effient was discontinued on last admission. Metoprolol 50 p.o. b.i.d., atorvastatin 10 mg daily, aspirin 81 mg daily, Xanax 1 mg p.o. t.i.d. PHYSICAL EXAMINATION: VITAL SIGNS: Temperature afebrile, heart rate 80, blood pressure 130/80. HEENT: PERRLA. Extraocular muscles intact. NECK: Supple. No carotid bruits or thyromegaly. CHEST: Clear to auscultation. HEART: S1 and S2, regular. ABDOMEN: Soft. EXTREMITIES: Clubbing and cyanosis negative. LABORATORY DATA: Blood workup as follows: WBC 7.3, hemoglobin 14, hematocrit is 41, and platelet count 164. Chemistry shows sodium 131, potassium 4, chloride 94, carbon dioxide 21, anion gap of 13. BUN 12, creatinine 0.6. Troponin 0.01. EKG showed normal sinus rhythm with right bundle-branch block and left anterior hemiblock, rate of 70. IMPRESSION: Atypical chest pain, mild tenderness in the epigastrium noted, history of gastroesophageal reflux disease, history of coronary artery disease, history of multiple stents, history of ST-elevation myocardial infarction, [id number] myocardial infarction, hypertension, and anxiety disorder. RECOMMENDATIONS: We will add lipid profile, TSH, hemoglobin A1c as well as troponin. If the troponin remains flat, the patient can be discharged with a stress test as outpatient. Last stress test in 03/2014, was negative. Discussed with the patient. The patient wants to go home today. So, we will wait until the second set is negative . If the troponin is negative, we will discharge and follow up stress test as outpatient. Thank you Dr. Shearer, for providing us the opportunity in taking care of the patient, Wilmar Haywood. Harley Whitlock MD cc:
--- NOTE | 2018-05-22 07:50 | CARD ---
APPROVED REPORT EKG Measurement Heart [id number] <Conclusion> Sinus bradycardia Nonspecific intraventricular block Cannot rule out Inferior infarct, age undetermined Abnormal ECG
== END 2018-05-21 16:53 | disposition home or self-care (01) ==
LOC: ED 19:28 → ERH 22:26 → 2RSO 05-21 00:52
PROVIDERS: ADMIT Surgery; ATTEND Surgery
DX: R07.89 Other chest pain (principal); I10 Essential (primary) hypertension; K21.9 Gastro-esophageal reflux disease without esophagitis; I73.9 Peripheral vascular disease, unspecified; I45.2 Bifascicular block; E78.00 Pure hypercholesterolemia, unspecified; F41.9 Anxiety disorder, unspecified; E78.5 Hyperlipidemia, unspecified; I25.10 Atherosclerotic heart disease of native coronary artery without angina pectoris; I25.2 Old myocardial infarction; Z79.82 Long term (current) use of aspirin; Z87.11 Personal history of peptic ulcer disease; Z95.5 Presence of coronary angioplasty implant and graft; Z90.49 Acquired absence of other specified parts of digestive tract
CPT/HCPCS: 36415; 71045; 80053; 80061; 82550; 83615; 83880; 84443; 84484; 85027; 85610; 85730; 93005; 96365; 96375; 99285; G0378; J2270; J2405

== ENCOUNTER 2018-08-03 20:48 | Inpatient (IN) | payer MEDICARE, BC ==
[2018-08-03 20:49] VITALS: BMI 25.2
--- NOTE | 2018-08-03 21:38 | ED PDOC ---
Arrival/HPI <Avelino Collado - Last Filed: 08/03/18 23:35> - General Historian: Patient, Spouse - History of Present Illness Time/Duration: 4-6 hours Symptom Onset: Gradual Symptom Course: Unchanged Quality: Pressure Severity Level: 3 Activities at Onset: Rest Context: Sitting <[email or web address] - Last Filed: 08/04/18 00:53> - General Chief Complaint: Chest Pain Time Seen by Provider: 08/03/18 21:03 - History of Present Illness Narrative History of Present Illness (Text): 08/03/18 21:22 CC: R sided chest pain HPI: Mr. Haywood is a 78 year old male with a past medical history of CAD with multiple stents, last TX reported 1.5 years ago, GERD with allergy to Protonix, Anxiety, spinal stenosis, and HTN who presents with right sided chest pain. Patient reports that around 5pm today, patient was sitting and resting and felt a slight pain over the right chest associated with palpitations. Describes as pressure-like without radiation associated with nausea and mild diaphoresis. Rates pain 3/10. Of note, patient had a negative stress test 2 months ago. Patient took an unknown reflux medication along with ASA 325 mg with minimal relief. No intervention has made pain better or worse. PCP: Dr. Shearer Cardio: Dr. Whitlock (Russ Riojas) Past Medical History - Provider Review Nursing Documentation Reviewed: Yes - Travel History Have you recently traveled outside [place] w/in the past 3 mons?: No - Past History Past History: No Previous - Infectious Disease Hx of Infectious Diseases: None - Tetanus Immunization Tetanus Immunization: Unknown - Cardiac Hx Cardiac Disorders: Yes Hx Hypertension: Yes - Pulmonary Hx Respiratory Disorders: No - Neurological Hx Neurological Disorder: No - HEENT Hx HEENT Disorder: No - Renal Hx Renal Disorder: No - Endocrine/Metabolic Hx Endocrine Disorders: No - Hematological/Oncological Hx Blood Disorders: No - Integumentary Hx Dermatological Disorder: No - Musculoskeletal/Rheumatological Hx Musculoskeletal Disorders: Yes Hx Back Pain: Yes Hx Herniated Disk: Yes Hx Spinal Stenosis: Yes Hx Unsteady Gait: Yes - Gastrointestinal Hx Gastrointestinal Disorders: Yes Hx Diverticulitis: Yes Hx Gastroesophageal Reflux: Yes Hx Gastrointestinal Ulcer: Yes - Genitourinary/Gynecological Hx Genitourinary Disorders: No - Psychiatric Hx Psychophysiologic Disorder: Yes Hx Anxiety: Yes Hx Substance Use: No - Surgical History Hx Appendectomy: Yes Hx Cholecystectomy: Yes Hx Coronary Stent: Yes - Anesthesia Hx Anesthesia Reactions: No Hx Malignant Hyperthermia: No - Suicidal Assessment Feels Threatened In Home Enviroment: No <Russ Riojas - Last Filed: 08/04/18 00:53> Family/Social History - Physician Review Nursing Documentation Reviewed: Yes Family/Social History: Unknown Family HX Smoking Status: Former Smoker Hx Alcohol Use: No Hx Substance Use: No Hx Substance Use Treatment: No <Russ Riojas - Last Filed: 08/04/18 00:53> Allergies/Home Meds <Avelino Collado - Last Filed: 08/03/18 23:35> <Russ Riojas - Last Filed: 08/04/18 00:53> Allergies/Adverse Reactions: Allergies pantoprazole sodium [From Protonix] Allergy (Verified 08/03/18 20:57) ANAPHYLAXIS Home Medications: Home Meds Medication Instructions Recorded Confirmed ALPRAZolam [Xanax] 1 mg PO TID 06/06/17 08/03/18 Aspirin [Ecotrin] 81 mg PO DAILY 06/06/17 08/03/18 Atorvastatin [Lipitor] 10 mg PO DIN 06/06/17 08/03/18 Metoprolol Tartrate [Lopressor] 50 mg PO BID 06/06/17 08/03/18 Prasugrel [Effient] 10 mg PO DAILY 06/06/17 08/03/18 Ramipril [Altace] 2.5 mg PO DAILY 06/06/17 08/03/18 Sucralfate [Carafate Tab] 1 gm PO BID 06/06/17 08/03/18 oxyCODONE/Acetaminophen [Percocet 1 tab PO TID PRN 06/06/17 08/03/18 5/325 mg Tab] Review of Systems - Review of Systems Constitutional: Normal Eyes: Normal Respiratory: SOB Cardiovascular: Chest Pain, Palpitations Gastrointestinal: Normal, Nausea. absent: Vomiting Genitourinary Male: Normal Musculoskeletal: Normal Skin: Normal Neurological: Normal. absent: Headache, Dizziness <Russ Riojas - Last Filed: 08/04/18 00:53> Physical Exam Vital Signs Reviewed: Yes Temperature: Afebrile Blood Pressure: Normal Pulse: Regular Respiratory Rate: Normal Appearance: Positive for: Well-Appearing, Non-Toxic, Comfortable Pain Distress: Mild Mental Status: Positive for: Alert and Oriented X 3 - Systems Exam Head: Present: Atraumatic, Normocephalic Pupils: Present: PERRL Extroacular Muscles: Present: EOMI Conjunctiva: Present: Normal Mouth: Present: Moist Mucous Membranes Neck: Present: Normal Range of Motion Respiratory/Chest: Present: Clear to Auscultation, Good Air Exchange. No: Respiratory Distress, Accessory Muscle Use, Decreased Breath Sounds, Tender to Palpation Cardiovascular: Present: Regular Rate and Rhythm, Normal S1, S2. No: Murmurs, Tachycardic, Rub, Gallop Abdomen: Present: Normal Bowel Sounds, Scars (RUQ from cholecystectomy ). No: Tenderness, Distention, Peritoneal Signs, Rebound, Guarding Back: Present: Normal Inspection Neurological: Present: GCS=15, CN II-XII Intact, Speech Normal Skin: Present: Warm, Dry Psychiatric: Present: Alert, Oriented x 3, Normal Insight, Normal Concentration <Russ Riojas - Last Filed: 08/04/18 00:53> Vital Signs Temp Pulse Resp BP Pulse Ox 08/04/18 00:16 65 18 154/89 H 100 08/03/18 21:05 99.5 F 73 18 139/73 95 Medical Decision Making <Avelino Collado - Last Filed: 08/03/18 23:35> <Russ Riojas - Last Filed: 08/04/18 00:53> ED Course and Treatment: 08/03/18 23:25 A 78 year old male presents to the emergency department with a complaint of right sided chest pain. In agreement with resident note, which includes further HPI details. Patient was seen and evaluated with resident, came up with plan and treatment together. 08/03/18 23:35: Case discussed in detail with Dr. Shearer. (Avelino Collado) 08/03/18 21:39 78 year old male with significant past cardiac history, most recently with an TX 1.5 years ago when he received 2 stents and a negative stress test two months ago, who presents with R sided nonreproducible chest pain. GERD vs ACS Plan: EKG Trop CXR CBC, CMP Mg UA Zofran 4 mg 08/03/18 22:09 On reassessment, patient complains of some nausea. Maalox 30 mg administered. Slight Hyponatremia is at baseline. Patient reports appropriate oral intake. EKG shows NSR @ 78 bpm, RBBB. CXR shows no acute fractures or consolidation. Follow up final read. (Russ Riojas) - Lab Interpretations Lab Results: 08/03/18 21:36 08/03/18 21:36 Lab Results 08/03/18 23:50: Urine Color Yellow, Urine Appearance Clear, Urine pH 6.5, Ur Specific Dewey 1.010, Urine Protein Negative, Urine Glucose (UA) Negative, Urine Ketones Negative, Urine Blood Negative, Urine Nitrate Negative, Urine Bilirubin Negative, Urine Urobilinogen 0.2, Ur Leukocyte Esterase Negative 08/03/18 21:36: TSH 3rd Generation 3.52 08/03/18 21:36: WBC 8.4, RBC 4.58, Hgb 14.9, Hct 42.2, MCV 92.1, MCH 32.5, MCHC 35.3, RDW 13.6, Plt Count 162, MPV 9.4, Gran % 51.1, Lymph % (Auto) 34.2, [place]berson % (Auto) 11.8 H, Eos % (Auto) 2.5, Baso % (Auto) 0.4, Gran # 4.27, Lymph # (Auto ) 2.9, [place] # (Auto) 1.0 H, Eos # (Auto) 0.2, Baso # (Auto) 0.03 08/03/18 21:36: Sodium 131 L, Potassium 4.0, Chloride 94 L, Carbon Dioxide 27, Anion Gap 14, BUN 18, Creatinine 0.7 L, Est GFR ( Amer) > 60, Est GFR ( Non-Af Amer) > 60, Random Glucose 117 H, Calcium 9.2, Magnesium 2.0, Total Bilirubin 0.5, AST 32, ALT 31, Alkaline Phosphatase 59, Lactate Dehydrogenase 459, Total Creatine Kinase 157, Troponin I < 0.01, Total Protein 6.9, Albumin 4.1, Globulin 2.9, Albumin/Globulin Ratio 1.4 - RAD Interpretation Radiology Orders: 08/03/18 21:19 CHEST PORTABLE [RAD] Stat - Medication Orders Current Medication Orders: Acetaminophen (Tylenol 325mg Tab) 650 mg PO Q4H PRN PRN Reason: Pain, Mild (1-3) Discontinued Medications Al Hydrox/Mg Hydrox/Simethicone (Maalox Plus 30 Ml) 30 ml PO STAT STA Stop: 08/03/18 22:28 Last Admin: 08/03/18 22:30 Dose: 30 ml Sodium Chloride (Sodium Chloride 0.9%) 1,000 mls @ 999 mls/hr IV .Q1H1M STA Stop: 08/03/18 22:46 Last Admin: 08/03/18 22:00 Dose: 999 mls/hr eMAR Start Stop Document 08/03/18 22:00 AD (Rec: 08/03/18 23:25 AD [id number]) Intravenous Solution Start Date 08/03/18 Start Time 22:00 Ondansetron HCl (Zofran Tab) 4 mg PO STAT STA Stop: 08/03/18 21:54 Last Admin: 08/03/18 22:00 Dose: 4 mg Ondansetron HCl (Zofran Inj) 4 mg IVP STAT STA Stop: 08/03/18 23:33 Last Admin: 08/03/18 23:45 Dose: 4 mg - Scribe Statement The provider has reviewed the documentation as recorded by the Scribe <Avelino Collado - Last Filed: 08/03/18 23:35> <Russ Riojas - Last Filed: 08/04/18 00:53> - Scribe Statement Kristel Swartz Provider Scribe Attestation: All medical record entries made by the Scribe were at my direction and personally dictated by me. I have reviewed the chart and agree that the record accurately reflects my personal performance of the history, physical exam, medical decision making, and the department course for this patient. I have also personally directed, reviewed, and agree with the discharge instructions and disposition. (Avelino Collado) Disposition/Present on Arrival <Avelino Collado - Last Filed: 08/03/18 23:35> - Present on Arrival Any Indicators Present on Arrival: No History of DVT/PE: No History of Uncontrolled Diabetes: No Urinary Catheter: No History of Decub. Ulcer: No History Surgical Site Infection Following: None - Disposition Have Diagnosis and Disposition been Completed?: Yes Disposition Time: 23:00 Patient Plan: Admission <Russ Riojas - Last Filed: 08/04/18 00:53> - Disposition Diagnosis: Chest pain, rule out acute myocardial infarction, Acute coronary syndrome Disposition: HOSPITALIZED Patient Problems: Current Active Problems Problem Status Onset Acute coronary syndrome Acute Chest pain, rule out acute myocardial infarction Acute Condition: IMPROVED
[2018-08-03 21:40] LABS: BASO # 0.03 K/mm3 (0.0-2.0); BASO % 0.4 % (0.0-3.0); EOS # 0.2 (0.0-0.7); EOS % 2.5 % (1.5-5.0); GRAN # 4.27 (1.4-6.5); GRAN % 51.1 % (50.0-68.0); HEMOGLOBIN 14.9 g/dL (14.0-18.0); LYMPH # 2.9 (1.2-3.4); LYMPH % 34.2 % (22.0-35.0); MEAN CELL VOLUME 92.1 fl (80.0-105.0); MEAN CORPUSCULAR HEMOGLOBIN 32.5 pg (25.0-35.0); MEAN CORPUSCULAR HGB CONC 35.3 g/dl (31.0-37.0); MEAN PLATELET VOLUME 9.4 fl (7.0-11.0); MONO % 11.8 % (1.0-6.0); RBC 4.58 10^6/uL (3.5-6.1); RED CELL DISTRIBUTION WIDTH 13.6 % (11.5-14.5); WHITE BLOOD COUNT 8.4 10^3/ul (4.5-11.0)
[2018-08-03] MEDS ORDERED: Sodium Chloride 0.9% 1,000 ML IV STA (21:46)
[2018-08-03 21:51] LABS: ALB/GLOB RATIO 1.4 (1.1-1.8); ALBUMIN 4.1 g/dL (3.0-4.8); ALT/SGPT 31 U/L (7-56); AST/SGOT 32 U/L (17-59); BLOOD UREA NITROGEN 18 mg/dL (7-21); CALCIUM 9.2 mg/dL (8.4-10.5); GFR NON-AFRICAN AMERICAN > 60
[2018-08-03 22:02] LABS: TROPONIN I < 0.01 ng/mL
[2018-08-03] MEDS ORDERED: Alum-Mag Hydrox-Simethicone Susp (30 mL) PO STA (22:27)
--- NOTE | 2018-08-03 23:57 | CP.PCM.PCO ---
Physician Communication Note - Physician Communication Note Physician Communication Note: Chest Pain:GERD vs Ischemia-Observe [facility] Eval am
[2018-08-04 00:02] LABS: PH,URINE 6.5 (4.7-8.0); URINE BILIRUBIN NEGATIVE (NEGATIVE); URINE BLOOD NEGATIVE (NEGATIVE); URINE GLUCOSE (UA) NEGATIVE (NEGATIVE); URINE LEUKOCYTE ESTERASE NEGATIVE Leu/uL (NEGATIVE); URINE PROTEIN NEGATIVE mg/dL (<30 mg/dL); URINE UROBILINOGEN 0.2 E.U./dL (<1 E.U./dL)
[2018-08-04 00:04] LABS: URINE APPEARANCE CLEAR (CLEAR); URINE COLOR YELLOW (YELLOW)
[2018-08-04] MEDS ORDERED: EnalaprilAT 1.25 mg/ml Inj IVP STA ×2 (01:10→23:52)
[2018-08-04] MEDS ORDERED: Alum-Mag Hydrox-Simethicone Susp (30 mL) PO PRN (04:31)
[2018-08-04] MEDS: Famotidine 20mg/50ml 20 MG in Premixed IV 50 EA IVPB SCH ×3 (05:10→22:32)
[2018-08-04] MEDS ORDERED: Oxycodone/Acetaminophen 5/325 mg Tab PO STA (05:28)
--- NOTE | 2018-08-04 10:02 | RAD ---
Date of service: 08/03/2018 HISTORY: cp COMPARISON: 05/20/2018 FINDINGS: LUNGS: No active pulmonary disease. PLEURA: No significant pleural effusion identified, no pneumothorax apparent. CARDIOVASCULAR: Mild cardiomegaly and aortic tortuosity OSSEOUS STRUCTURES: No significant abnormalities. VISUALIZED UPPER ABDOMEN: Normal. OTHER FINDINGS: None. IMPRESSION: No active disease.
[2018-08-04 11:15] LABS: BASO # 0.02 K/mm3 (0.0-2.0); BASO % 0.2 % (0.0-3.0); EOS # 0.1 (0.0-0.7); EOS % 1.6 % (1.5-5.0); GRAN # 4.78 (1.4-6.5); GRAN % 55.1 % (50.0-68.0); HEMOGLOBIN 15.1 g/dL (14.0-18.0); LYMPH # 2.7 (1.2-3.4); LYMPH % 31.6 % (22.0-35.0); MEAN CELL VOLUME 91.8 fl (80.0-105.0); MEAN CORPUSCULAR HEMOGLOBIN 32.4 pg (25.0-35.0); MEAN CORPUSCULAR HGB CONC 35.3 g/dl (31.0-37.0); MEAN PLATELET VOLUME 9.1 fl (7.0-11.0); MONO % 11.5 % (1.0-6.0); RBC 4.66 10^6/uL (3.5-6.1); RED CELL DISTRIBUTION WIDTH 13.6 % (11.5-14.5); WHITE BLOOD COUNT 8.7 10^3/ul (4.5-11.0)
[2018-08-04] MEDS: Oxycodone/Acetaminophen 5/325 mg Tab PO PRN (12:01)
--- NOTE | 2018-08-04 12:12 | CARD ---
APPROVED REPORT Date of service: 08/03/2018 EKG Measurement Heart [id number] <Conclusion> Normal sinus rhythm Right bundle branch block Left anterior fascicular block Bifascicular block Voltage criteria for left ventricular hypertrophy Cannot rule out Septal infarct, age undetermined Abnormal ECG
--- NOTE | 2018-08-04 12:39 | CP.PCM.PCO ---
Physician Communication Note - Physician Communication Note Physician Communication Note: Chest pain better-await cardiology input
--- NOTE | 2018-08-05 03:43 | CON ---
DATE: 08/04/2018 CARDIOLOGY CONSULT REASON FOR CONSULTATION: Chest pain. HISTORY OF PRESENT ILLNESS: The patient is a 78 years old male who has a history of hypertension, coronary artery disease, underwent coronary stenting to the ramus intermedius artery and circumflex artery in 02/2018. The patient presents because of chest pain that is mainly epigastric radiating to the lower sternal area. The patient did report palpitation. He denies any dizziness or syncope. The patient claims to be compliant with his medications. SOCIAL HISTORY: Former smoker. MEDICATIONS: Cardizem 60 mg four times a day, clonidine 0.1 mg twice a day, which I added this time, aspirin 81 mg once a day, Pepcid 20 mg intravenous twice a day, Lopressor 50 mg twice a day, Percocet one tablet b.i.d. p.r.n., MiraLax 30 mL p.o. p.r.n., Xanax 1 mg p.o. t.i.d. REVIEW OF SYSTEMS: No fever or chills. No dizziness or syncope. No back pain. PHYSICAL EXAMINATION: GENERAL: The patient is an elderly male who does not appear to be in acute distress. VITAL SIGNS: Blood pressure 171/93, heart rate 60, temperature 97.8, respirations 18. HEENT: Normocephalic. CHEST: Minimal rhonchi. HEART: S1 and S2 regular. ABDOMEN: Soft. EXTREMITIES: No edema. LABORATORY DATA: Chest x-ray revealed borderline cardiomegaly, mildly widened mediastinum, prominent bronchovascular markings. Official report stated no active disease. EKG revealed sinus rhythm. Right bundle-branch block with left anterior fascicular block. Hemoglobin and hematocrit 15.1 and 42.8. White count and platelet count are within normal limits. SMA-7: Sodium 131, potassium 4.0, chloride 94, CO2 27, glucose 117, BUN 18, creatinine 0.7. Echocardiographic study performed in 03/2017, revealed normal ejection fraction, mild pulmonary hypertension, and it is mentioned in the report that the patient is status post non-STEMI and status post two-vessels stenting. ASSESSMENT: 1. Coronary artery disease, status post coronary artery stenting to ramus intermedius artery and the right coronary artery in 02/2018. 2. Atypical chest pain, myocardial infarction is ruled out. 3. Uncontrolled hypertension. 4. Sinus bradycardia. RECOMMENDATIONS: Discontinue clonidine. Hold Lopressor and Cardizem for heart rate below 60. Start Norvasc at 10 mg orally daily. Continue aspirin 81 mg once a day and start Plavix 75 mg once a day. Ulisses Gallagher MD
[2018-08-05] MEDS ORDERED: Sodium Chloride 0.9% 1,000 ML IV SCH (09:00)
[2018-08-05 09:48] LABS: BASO # 0.02 K/mm3 (0.0-2.0); BASO % 0.2 % (0.0-3.0); EOS # 0.2 (0.0-0.7); EOS % 1.6 % (1.5-5.0); GRAN % 54.6 % (50.0-68.0); HEMOGLOBIN 16.3 g/dL (14.0-18.0); LYMPH # 3.7 (1.2-3.4); LYMPH % 33.5 % (22.0-35.0); MEAN CELL VOLUME 93.3 fl (80.0-105.0); MEAN CORPUSCULAR HGB CONC 34.3 g/dl (31.0-37.0); MEAN PLATELET VOLUME 9.2 fl (7.0-11.0); MONO # 1.1 (0.1-0.6); MONO % 10.1 % (1.0-6.0); RBC 5.09 10^6/uL (3.5-6.1); RED CELL DISTRIBUTION WIDTH 13.8 % (11.5-14.5)
[2018-08-05 10:01] LABS: ALB/GLOB RATIO 1.4 (1.1-1.8); ALBUMIN 4.5 g/dL (3.0-4.8); ALT/SGPT 42 U/L (7-56); AST/SGOT 43 U/L (17-59); BLOOD UREA NITROGEN 16 mg/dL (7-21); CALCIUM 9.5 mg/dL (8.4-10.5); GFR NON-AFRICAN AMERICAN > 60; HDL CHOLESTEROL 59 mg/dL (29-60)
[2018-08-05 10:09] LABS: LDL CHOLESTEROL 80 mg/dL (0-129)
[2018-08-05 10:12] LABS: TROPONIN I < 0.01 ng/mL
--- NOTE | 2018-08-05 10:17 | CT ---
Date of service: 08/05/2018 PROCEDURE: CT HEAD WITHOUT CONTRAST. HISTORY: AMS COMPARISON: None available. TECHNIQUE: Axial computed tomography images were obtained through the head/brain without intravenous contrast. Radiation dose: Total exam DLP = 863.92 mGy-cm. This CT exam was performed using one or more of the following dose reduction techniques: Automated exposure control, adjustment of the mA and/or kV according to patient size, and/or use of iterative reconstruction technique. FINDINGS: HEMORRHAGE: No intracranial hemorrhage. BRAIN: There are moderate chronic microangiopathic changes. There is no mass, mass effect or abnormal extra-axial fluid collection. There is no territorial infarction. The midline sagittal structures are normal.There are coarse atherosclerotic calcifications in the cavernous carotid arteries. VENTRICLES: There is mild age-related global parenchymal volume loss and proportionate enlargement of the ventricles and cortical sulci. CALVARIUM: The skull base and calvarium are normal. PARANASAL SINUSES: Predominantly clear. MASTOID AIR CELLS: Predominantly clear. OTHER FINDINGS: None. IMPRESSION: No acute intracranial abnormality. If there is a persistent focal neurologic deficit and an ongoing clinical concern for acute infarction, an MRI of the brain without intravenous contrast would be a more sensitive modality for evaluation of hyperacute/acute ischemic infarction. . Moderate chronic microangiopathic changes and mild age-related global parenchymal volume loss with
[2018-08-05 10:18] LABS: FREE T4 1.07 ng/dL (0.78-2.19)
--- NOTE | 2018-08-05 10:38 | CT ---
PROCEDURE: CTA HEAD AND NECK WITH CONTRAST HISTORY: AMS COMPARISON: None available. TECHNIQUE: Initial noncontrast head CT was performed. Subsequently, CT angiogram of the head and neck were performed after the intravenous administration of 80 mL of Omnipaque 350. Contiguous 1.5mm thick images were obtained in the axial plane of the neck. 2-D coronal and sagittal MPR images were obtained. Imaging postprocessing was performed with 3-D images also obtained. A delayed contrast head CT was also obtained. This CT exam was performed using one or more of the following dose reduction techniques: Automated exposure control, adjustment of the mA and/or kV according to patient size, and/or use of iterative reconstruction technique. Contrast dose: 150 mL Omnipaque 350 Radiation dose: Total exam DLP = 518.00 mGy-cm. FINDINGS: HEAD: There are mild atherosclerotic calcifications in the cavernous carotid segments and scattered calcifications in the M1 segments. Right: The intracranial internal carotid artery, and anterior and middle cerebral arteries are widely patent. Left: The intracranial internal carotid artery, and anterior and middle cerebral arteries are widely patent. The A1 segment is hypoplastic, an anatomic variant. Posterior circulation: The visualized intracranial vertebral arteries, basilar artery and posterior cerebral arteries are widely patent. There are atherosclerotic calcifications in the right vertebral artery. There is no endoluminal filling defect to suggest thrombus. There is no intracranial saccular aneurysm. NECK: There is a 4 vessel aortic arch. The left vertebral artery arises from the aortic arch between the left common carotid and subclavian arteries. There is no stenosis at the origins of the great vessels at the level of the aortic arch. Right Carotid: On the right, the common carotid, internal carotid and external carotid arteries are widely patent. There is no hemodynamically significant stenosis in the internal carotid artery by NASCET criteria. Left Carotid: On the left, the common carotid, internal carotid and external carotid arteries are widely patent.There is no hemodynamically significant stenosis in the internal carotid arteries. There is no hemodynamically significant stenosis in the internal carotid artery by NASCET criteria. The vertebral arteries are widely patent. The left vertebral artery is hypoplastic, an anatomic variant. The visualized soft tissues of the neck are normal. The visualized brain and cervical spine are within normal limits. The lung apices are clear. IMPRESSION: 1. No evidence of endoluminal thrombus,occlusion or definite significant stenosis in the intracranial arteries. 2. No evidence of hemodynamically significant stenosis in the internal carotid arteries. 3. Patent bilateral vertebral arteries.
--- NOTE | 2018-08-05 10:51 | CP.PCM.PCO ---
Physician Communication Note - Physician Communication Note Physician Communication Note: Overshoot BP Rx(200 to 100)w confusion/CTNeg-keep 24Hr more
[2018-08-05] MEDS: Oxycodone/Acetaminophen 5/325 mg Tab PO PRN ×2 (11:08→23:07)
[2018-08-05] MEDS: Famotidine 20mg/50ml 20 MG in Premixed IV 50 EA IVPB SCH (11:09)
--- NOTE | 2018-08-05 12:01 | HP ---
DATE OF EXAM: 08/03/2018 CHIEF COMPLAINT: Chest pain. HISTORY OF PRESENT ILLNESS: Mr. Haywood is a 78-year-old man with medical history of hypertensive coronary artery disease treated with multiple stents and myocardial infarction reported 1-1/2 years ago. He has significant gastroesophageal reflux and a known allergy to Protonix with anaphylaxis. He is extremely anxious. He has spinal stenosis and severe low back pain that has been worsening over the past week. He describes the pain as being just right of the sternum and epigastrium with nausea and diaphoresis. He rates it as a 3/10. He had a stress test 2 months ago that was perfectly normal and he is taking aspirin 325 and reflux medicine, but not taking any other blood thinners at this point. MEDICATIONS: Include Xanax 1 mg three times a day, aspirin 81, Lipitor 10, Toprol 50 b.i.d. The Effient has been stopped for 1 month. He takes ramipril 2.5 mg and Carafate 1 g b.i.d., oxycodone and Percocet is typically 1 tablet daily, sometimes twice daily, mainly for his low back pain. He is on Prevacid, which is not listed in the ER record. PHYSICAL EXAMINATION: VITAL SIGNS: He is 5 feet 8 inches and weighs 170 pounds, his blood pressure is 154/89, his pulse is 65, his pulse ox is 100. MUSCULOSKELETAL: Examination demonstrates mild epigastric tenderness and significant low back tenderness with straight leg raising bilaterally exacerbating the pain. LABORATORY DATA: The white count is 8.4, the hemoglobin is 14.9, TSH is 3.5. His troponin is 0.01. His EKG demonstrates ST changes consistent with possible ischemia of indeterminate origin. IMPRESSION UPON ADMISSION: 1. Atypical chest pain. 2. Hypertensive coronary artery disease. 3. Gastroesophageal reflux - poor control. 4. Severe anxiety disorder. 5. Lumbar spinal stenosis. Thank you very much. Mark Shearer MD
--- NOTE | 2018-08-05 12:08 | PN ---
DATE: 08/05/2018 After admission, the patient's substernal chest pain and lower back pain have resolved significantly. He has been placed on significant antireflux medication and have been evaluated by Cardiology who adjusted his blood pressure medication and recommended to discontinue clonidine, holding Lopressor and Cardizem for heart rate below 50 and starting Norvasc 10. He is now on aspirin 81 and Plavix and doing very well the day before. Overnight, he developed the significantly high blood pressure, which was 212/110 and was given IV Vasotec and his blood pressure dropped to 100/64 and he became somewhat confused. He was disoriented to time, place and person and did not know why he was here in the hospital and with intravenous hydration and tincture of time, he is improved. He was sent for CAT scan of the head without contrast demonstrating normal for age CAT scan without evidence of any hemorrhage and the patient was reexamined and found to be neurologically intact. There were no bruits in the neck and consultation was obtained with neurologist, Dr. Mcelroy and psychiatrist, Dr. Bonds who initially started the patient on Xanax 1 mg dosage. The patient will be left on these dosages until seen by the consultants; will be reexamined serially during the day and most likely be able to go home the following day with the recommendations from the vessel liner as mentioned above using Norvasc versus Lopressor and Cardizem. Aspirin and Plavix will probably be continued at this point and he will follow up with his private vessel liner after discharge, but the problem with his altered mental status is presumptively due to the hypotension (iatrogenic). This dictation will be electronically signed without being read. Mark Shearer MD
--- NOTE | 2018-08-05 14:47 | EEG ---
Copied To: Nikita Mcelroy MD Attending MD: Nikita Mcelroy MD DATE: 08/05/2018 ELECTROENCEPHALOGRAM CONDITION OF THE RECORDING: Awake. DIAGNOSIS: Alerted mental status. MEDICATIONS: Reviewed by nurse reconciliation sheet. INTERPRETATION: This is a 16-channel international recording. The background activity of this tracing was composed of 8-1/2 cycles per second. There was small amount of beta activity of 16 to 20 cycles per second seen in this recording. There was small amount of theta activity of 5 to 7 cycles per second seen in this tracing. Drowsiness was characterized by the mixed beta and theta activities. The sleep was characterized by vertex transient waves, sleep spindles and bilateral slowing. Photic stimulation showed no change in the tracing. No paroxysmal activities were noted in this recording. CONCLUSIONS: This is a normal drowsy electroencephalogram. No evidence of any epileptiform activity. Please clinically correlate. Nikita Mcelroy MD
--- NOTE | 2018-08-05 15:22 | CON ---
DATE: 08/05/2018 HISTORY OF PRESENT ILLNESS: This is a 78-year-old man with history of hypertension; coronary artery disease, status post multiple stents; history of OR in the past; gastroesophageal reflux disease; who came to the hospital. He was extremely anxious and severe spinal stenosis and low back pain over the past week. I was consulted for his transient altered mental status. Apparently, he was found to have elevated systolic and diastolic blood pressures initially of 200/102 and was drastically dropped to 100/64, which caused the patient to be mildly confused and lightheaded. His CAT scan of the head showed no acute intracranial abnormalities. His EEG is completely normal and his electrolytes are much better today. Today's blood pressure is 135/76, much better controlled. No acute events overnight. Moves all extremities equally. PAST MEDICAL HISTORY: As above. ALLERGIES: ALLERGIC TO PANTOPRAZOLE SODIUM. REVIEW OF SYSTEMS: Fourteen-point review of systems is negative except as per the HPI. FAMILY HISTORY: Noncontributory. SOCIAL HISTORY: No illicit drug use, smoking or EtOH abuse. LABORATORY DATA: Sodium 135, potassium 4, chloride of 98, carbon dioxide of 25, BUN of 16, creatinine 0.7, random glucose 162. PHYSICAL EXAMINATION: VITAL SIGNS: Temperature 97.6, pulse rate of 79, blood pressure 135/76, respiratory rate of 20. GENERAL: The patient is lying in bed, in no acute distress. HEENT: Atraumatic, normocephalic. PERRLA. Extraocular muscles intact. NECK: Supple. No JVD, no adenopathy noted. LUNGS: Clear to auscultation. No adventitious sounds. HEART: S1 and S2. Normal rate and rhythm. No murmurs, rubs or gallops. ABDOMEN: Soft, nontender and nondistended. Bowel sounds are present. EXTREMITIES: No clubbing. No cyanosis. Peripheral pulses 2+ felt bilaterally. NEUROLOGIC: The patient is alert and oriented to person, place, month and year. Speech is fluent without any errors. Cranial nerves II through XII intact. Motor exam: Moves all extremities equally. No pronator drift seen. Sensory exam: Light touch, pinprick, proprioception and vibration are intact. DTRs are 2+ throughout, 1 at both knees and ankles. Coordination: Xqffac-wn-nwom intact. No dysmetria noted. Gait is deferred for now. ASSESSMENT AND PLAN: This is a 78-year-old man with past medical history of hypertension, coronary artery disease, gastroesophageal reflux disease, history of stents and chronic low back pain. I was consulted for change in mental status. He had a transient confusional state secondary to transient cerebral hypoperfusion to the brain from dramatic drops of elevated blood pressures to lower blood pressures. At this time, I recommend, 1. Keep his blood pressure between 130s-140s systolic and diastolic 70-80s. 2. Aspirin 81 and Plavix 75 for stroke prevention. 3. Physical therapy, occupational therapy as an outpatient for his chronic low back pain and follow up as an outpatient in regards to that. His EEG is normal. Once again, thank you for this consult. Nikita Mcelroy MD
--- NOTE | 2018-08-05 22:31 | PN ---
DATE: 08/05/2018 REASON FOR CONSULTATION AND FOLLOWUP: Chest pain, coronary artery disease. SUBJECTIVE: Patient denies any chest pain, shortness of breath or any palpitation. Patient is not in apparent distress, lying flat in the bed. is at the bedside PHYSICAL EXAMINATION: VITAL SIGNS: As follows, temperature afebrile, heart rate 56, blood pressure 135/76. HEENT: PERRLA. Extraocular muscles intact. NECK: Supple. No carotid bruits or thyromegaly. CHEST: Clear to auscultation. HEART: S1 and S2, regular. ABDOMEN: Soft. EXTREMITIES: Clubbing and cyanosis negative. LABORATORY DATA: Blood workup as follows; WBC 11, hemoglobin 16, hematocrit 47.5, platelet count 169. Chemistry shows sodium 135, potassium 4, chloride 98, carbon dioxide 25, anion gap of 15, BUN 16, creatinine 0.7. Troponin 0.01 times negative. IMPRESSION: A 78-year-old male with past medical history significant for multiple ST-segment elevation myocardial infarction, lro-UC-pcbcpgu elevation myocardial infarction, multiple cardiac catheterization, multiple percutaneous transluminal coronary angioplasties at the [facility]. Last catheterization in 02/2014, chronically elevated ST-segment in V2, V3, history of peripheral arterial disease, came in with chest pain so far, atypical so far. Troponin remains negative. History of spinal stenosis, history of percutaneous transluminal coronary angioplasty of right femoral artery on 03/12/2014, history of last catheterization on 02/2014 after that multiple stress tests are negative, history of very bad gastroesophageal reflux, history of hypertension, hyperlipidemia. Last stress test, patient had dated 06/05/2018 that shows probably abnormal myocardial perfusion study, fixed defect, no reversible ischemia, ejection fraction 53%. Last echo here in the hospital on 03/07/2017 that shows status post [address]-segment elevation myocardial infarction, kte-XU-lhlzkuq elevation myocardial infarction. Echo shows ejection fraction 55% to 60%, dnokysww-eo-haduox aortic regurgitation, bqff-sy-riyepqan mitral regurgitation. So admitted with chest pain and gastroesophageal reflux, atypical chest pain. Hospital course is complicated by tachycardia, hypertension, got antihypertensive medication, becomes hypotensive, change in mental status which subsequently improved. 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 RECOMMENDATION: Adjust antihypertensive medication and if he remained stable, possible discharge home. No evidence of acute myocardial infarction noted, history of chronic back pain. We will follow with you. Patient is off Plavix and we will discontinue Plavix. Thank you, Dr. Shearer, for providing us the opportunity in taking care of the patient, Wilmar Haywood. Harley Whitlock MD
--- NOTE | 2018-08-05 22:34 | CON ---
DATE: 08/05/2018 IDENTIFYING INFORMATION: The patient is a 78-year-old white male well known to me with a history of hypertensive coronary artery disease who has had multiple stents and myocardial infarction approximately 1-1/2 years ago. His family history is extensive for cardiovascular disease and has lost several brothers due to this disorder. He also has a history of GERD and KNOWN ALLERGY TO PROTONIX WITH ANAPHYLAXIS. He is noted to be anxious, more so presently and also is generally subdued. The patient has also had spinal stenosis and severe lower back pain that has been worsening over the past week. Presently he reported pain in his sternum and epigastrium with nausea and diaphoresis. He had a stress test 2 months ago that was normal. He is maintained on Xanax 1 mg three times a day (for years and is quite committed to this). He has also been on oxycodone and Percocet daily, sometimes twice daily for his low back pain. The patient seen in my office several times a year for ongoing depression and anxiety. He has had to deal not only with his concern about his own health and vulnerability given his familial cardiovascular history, but also about the fact that his son has been treated for a brain tumor. He has a daughter who lives nearby and a supportive whom he has been to for many years. His medication presently are Ecotrin 81 mg daily, Lopressor 25 mg b.i.d., Norvasc 10 mg daily, Pepcid 20 mg b.i.d., Percocet 5/325 p.r.n., Xanax 1 mg t.i.d. Blood pressure 135/76, pulse 79, temperature 97.6, respiratory rate 20. A CBC and differential is unremarkable. A biochemical profile showed slightly elevated blood glucose of 162. He had been seen in my office on 07/25 (last week). At that time, it was felt that he was somewhat slower in his movement and speech which was almost Parkinsonian like. He expressed concern about his son who had a cerebral shunt about 5 weeks ago, although he was doing better by the time I had seen him. His nwdwlnio-xh-hhs who was in her 9 months of has been 5 days in the hospital with his son followed 1 week later by the of his new grandson, Brian who is reportedly doing well. The patient himself was complaining of feeling sick and short of breath and being bothered by the heat. My discussion with nursing indicated that the patient had a drop in his blood pressure initially and became confused but now upon my evaluation of him, he is alert, oriented, readily identified me, he was aware of where he was, the date, time and seems appropriate and back to his baseline state. His baseline state is one of dysthymia and anxiety. I have discussed the patient's situation with nursing and with Dr. Shearer. Darvin Bonds MD/ PhD
[2018-08-06 00:51] VITALS: RESP 18; O2SAT 95
[2018-08-06 07:28] LABS: BLOOD UREA NITROGEN 15 mg/dL (7-21); CALCIUM 8.8 mg/dL (8.4-10.5); GFR NON-AFRICAN AMERICAN > 60
[2018-08-06 07:40] LABS: BASO # 0.02 K/mm3 (0.0-2.0); BASO % 0.2 % (0.0-3.0); EOS # 0.3 (0.0-0.7); EOS % 3.6 % (1.5-5.0); GRAN # 4.69 (1.4-6.5); GRAN % 55.8 % (50.0-68.0); LYMPH # 2.4 (1.2-3.4); LYMPH % 28.1 % (22.0-35.0); MEAN CELL VOLUME 93.9 fl (80.0-105.0); MEAN CORPUSCULAR HEMOGLOBIN 31.9 pg (25.0-35.0); MEAN PLATELET VOLUME 9.2 fl (7.0-11.0); MONO % 12.3 % (1.0-6.0); RBC 4.45 10^6/uL (3.5-6.1); RED CELL DISTRIBUTION WIDTH 14.1 % (11.5-14.5); WHITE BLOOD COUNT 8.4 10^3/ul (4.5-11.0)
[2018-08-06 07:47] LABS: HEMOGLOBIN 14.2 g/dL (14.0-18.0)
[2018-08-06] MEDS: Oxycodone/Acetaminophen 5/325 mg Tab PO PRN (09:15)
[2018-08-06 12:07] VITALS: BP 160/92; PULSE 64; TEMP 97.6
--- NOTE | 2018-08-06 14:54 | PN ---
DATE: 08/06/2018 REASON FOR CONSULTATION AND FOLLOWUP: Chest pain, coronary artery disease, atypical chest pain. SUBJECTIVE: The patient denies any chest pain, shortness of breath, or any palpitation. OBJECTIVE: GENERAL: Not in apparent distress. VITAL SIGNS: As follows: Temperature afebrile, heart rate 66, blood pressure 103/56. HEENT: PERRLA. Extraocular muscles intact. NECK: Supple. No carotid bruits or thyromegaly. CHEST: Clear to auscultation. HEART: S1 and S2 regular. ABDOMEN: Soft. EXTREMITIES: Clubbing and cyanosis negative. LABORATORY DATA: Blood workup as follows: WBC 8.5, hemoglobin 14.9, hematocrit 41.8, platelet count 164. Chemistry shows sodium 134, potassium 4, chloride 99, carbon dioxide 28, anion gap of 11, BUN 15, creatinine 0.7. Troponin 0.01, negative. IMPRESSION: A 78-year-old male with past medical history significant for coronary artery disease, status post multiple ST-segment elevation myocardial infarction, awu-VK-lsbtfox elevation myocardial infarction, history of peripheral arterial disease, admitted with uncontrolled hypertension and chest pain. No evidence of acute myocardial infarction, atypical chest pain, and gastroesophageal reflux. RECOMMENDATIONS: On admission, the patient's blood pressure was elevated. Now, the patient is stable. I will changed metoprolol to 25 b.i.d., runs from 50, discontinue Norvasc. We will start Cardizem. On admission, the patient's blood pressure was elevated because of the stressful situation at home. We will discharge home on baby aspirin, sucralfate. We will discontinue prasugrel going to continue Lipitor 10 mg daily. The patient takes Xanax 1 mg three times a day, continue. Metoprolol, decrease to 25 p.o. b.i.d. Follow up in one week with Dr. Shearer and me. THE PATIENT IS ALLERGIC TO CLOPIDOGREL. Harley Whitlock MD
--- NOTE | 2018-08-07 12:34 | PCM.EEG ---
Electroencephalogram Report - Electroencephalogram Report Procedure Date: 08/05/18 Interpretation: Technical Information: This was a 21 -channel EEG, 1-channel EKG routine EEG performed using an [employer] machine. Electrodes were applied using the 10/20 international placement system. EEG Detail: During active states, the EEG contained symmetric 10-20 Hz,20-30 uV activity seen bi-frontally. . During resting wakefulness there was a symmetric posterior dominant rhythm at 8.5-9.5 Hz, 30-50 uV, which was reactive to eye opening and closing. . Drowsiness was associated with fragmentation of the posterior dominant rhythm and with slow roving eye movements. Light sleep was recorded and was characterized by central vertex waves, sleep spindles, and bilateral theta slowing. Hyperventilation was not performed. Photic stimulation was performed and there were no changes on the record. Focal abnormality; none. ECG was associated with a normal sinus rhythm. Impression: This is a normal awake drowsy and sleep electroencephalogram
== END 2018-08-06 14:18 | disposition home or self-care (01) | DRG 313 ==
LOC: ED 20:48 → ERH 23:37 → 2RNO 08-04 00:50 → OBSVTOIN 08-05 10:51
PROVIDERS: ADMIT Surgery; ATTEND Surgery
DX: R07.89 Other chest pain (principal); E87.1 Hypo-osmolality and hyponatremia; I25.10 Atherosclerotic heart disease of native coronary artery without angina pectoris; K21.9 Gastro-esophageal reflux disease without esophagitis; R00.1 Bradycardia, unspecified; I10 Essential (primary) hypertension; F41.9 Anxiety disorder, unspecified; M48.061 Spinal stenosis, lumbar region without neurogenic claudication; I95.89 Other hypotension; I73.9 Peripheral vascular disease, unspecified; I08.0 Rheumatic disorders of both mitral and aortic valves; E78.5 Hyperlipidemia, unspecified; F34.1 Dysthymic disorder; M54.5 Low back pain; G89.29 Other chronic pain; Z87.891 Personal history of nicotine dependence; Z79.82 Long term (current) use of aspirin; Z87.11 Personal history of peptic ulcer disease; Z95.5 Presence of coronary angioplasty implant and graft; I25.2 Old myocardial infarction; Z82.49 Family history of ischemic heart disease and other diseases of the circulatory system

== ENCOUNTER 2019-02-17 20:45 | Emergency (ER) | payer MEDICARE, BC ==
[2019-02-17 20:51] VITALS: BMI 28.0
[2019-02-17] MEDS ORDERED: Sodium Chloride 0.9% 1,000 ML IV SCH (21:00)
[2019-02-17 21:07] LABS: BASO # 0.02 K/mm3 (0.0-2.0); BASO % 0.2 % (0.0-3.0); EOS # 0.3 (0.0-0.7); EOS % 3.5 % (1.5-5.0); HEMOGLOBIN 15.7 g/dL (14.0-18.0); LYMPH # 4.5 (1.2-3.4); MEAN CELL VOLUME 92.9 fl (80.0-105.0); MEAN CORPUSCULAR HEMOGLOBIN 31.8 pg (25.0-35.0); MEAN CORPUSCULAR HGB CONC 34.2 g/dl (31.0-37.0); MEAN PLATELET VOLUME 9.4 fl (7.0-11.0); MONO # 0.8 (0.1-0.6); MONO % 9.2 % (1.0-6.0); RBC 4.94 10^6/uL (3.5-6.1); RED CELL DISTRIBUTION WIDTH 13.1 % (11.5-14.5); WHITE BLOOD COUNT 8.7 10^3/uL (4.5-11.0)
--- NOTE | 2019-02-17 21:08 | ED PDOC ---
Arrival/HPI - General Time Seen by Provider: 02/17/19 20:53 Historian: Family, EMS - Critical Care Critical Care Minutes: 30 minutes - History of Present Illness Narrative History of Present Illness (Text): 02/17/19 21:06 79 year old male, whose past medical history includes CAD with stents, [place], GERD, hypertension, and spinal stenosis, presents to the emergency department by EMS for possible stroke. According to EMS patient's family noted him slumped over on the chair and poorly responsive. Patient was not observed moving extremities. Patient appeared to respond to verbal questioning earlier, but not responding now. EMS informs that patient's family states he was fine prior to noticing symptoms. HPI and ROS limited due to patient condition. Time/Duration: Prior to Arrival Symptom Onset: Gradual Symptom Course: Unchanged Activities at Onset: Light Context: Sitting, Home Past Medical History - Provider Review Nursing Documentation Reviewed: Yes - Past History Past History: No Previous - Infectious Disease Hx of Infectious Diseases: None - Tetanus Immunization Tetanus Immunization: Unknown - Cardiac Hx Cardiac Disorders: Yes Hx Hypertension: Yes - Pulmonary Hx Respiratory Disorders: No - Neurological Hx Neurological Disorder: No - HEENT Hx HEENT Disorder: No - Renal Hx Renal Disorder: No - Endocrine/Metabolic Hx Endocrine Disorders: No - Hematological/Oncological Hx Blood Disorders: No - Integumentary Hx Dermatological Disorder: No - Musculoskeletal/Rheumatological Hx Musculoskeletal Disorders: Yes (Hx of Sciatica. Hx of Bulging Disks.) - Gastrointestinal Hx Gastroesophageal Reflux: Yes - Genitourinary/Gynecological Hx Genitourinary Disorders: No - Psychiatric Hx Substance Use: No - Surgical History Hx Cardiac Catheterization: Yes Hx Coronary Stent: Yes - Anesthesia Hx Anesthesia Reactions: No Hx Malignant Hyperthermia: No - Suicidal Assessment Feels Threatened In Home Enviroment: No Family/Social History - Physician Review Nursing Documentation Reviewed: Yes Family/Social History: No Known Family HX Smoking Status: Former Smoker Hx Alcohol Use: No Hx Substance Use: No Hx Substance Use Treatment: No Allergies/Home Meds Allergies/Adverse Reactions: Allergies clopidogrel [From Plavix] Allergy (Verified 08/05/18 20:49) RASH pantoprazole sodium [From Protonix] Allergy (Verified 08/03/18 20:57) ANAPHYLAXIS Home Medications: Home Meds Medication Instructions Recorded Confirmed ALPRAZolam [Xanax] 1 mg PO TID 06/06/17 02/17/19 Atorvastatin [Lipitor] 10 mg PO DIN 06/06/17 08/03/18 Prasugrel [Effient] 10 mg PO DAILY 06/06/17 08/03/18 Ramipril [Altace] 2.5 mg PO DAILY 06/06/17 08/03/18 Sucralfate [Carafate Tab] 1 gm PO BID 06/06/17 08/03/18 oxyCODONE/Acetaminophen [Percocet 1 tab PO BID PRN 06/06/17 02/17/19 5/325 mg Tab] Omeprazole 1 cap PO DAILY 02/17/19 02/17/19 Review of Systems - Physician Review All systems were reviewed & negative as marked: Yes - Review of Systems Systems not reviewed;Unavailable: Acuity of Condition Physical Exam Temperature: Afebrile Blood Pressure: Hypertensive Pulse: Regular Respiratory Rate: Normal Appearance: Positive for: Ill-Appearing Pain Distress: None Mental Status: Positive for: Lethargic Finger Stick Blood Glucose: 114 - Systems Exam Head: Present: Atraumatic, Normocephalic Pupils: Present: PERRL Conjunctiva: Present: Normal Mouth: Present: Moist Mucous Membranes Respiratory/Chest: Present: Clear to Auscultation, Good Air Exchange. No: Respiratory Distress, Accessory Muscle Use Cardiovascular: Present: Regular Rate and Rhythm, Normal S1, S2. No: Murmurs Abdomen: No: Tenderness, Distention, Peritoneal Signs Upper Extremity: No: Cyanosis, Edema Lower Extremity: No: Edema Neurological: Present: Other (aphasic/absent motor/sensory) Skin: Present: Warm, Dry, Normal Color. No: Rashes Medical Decision Making ED Course and Treatment: 02/17/19 20:50 Impression: 79 year old male presents with possible stroke. Plan: -- Type and Screen -- CT Head -- EKG -- CMP, A1C, Lipid, Trop -- Stroke team consult -- Prothrombin and thromboplasin -- Chest X-ray -- Cardene -- Reassess and disposition Prior Visits: Notes and results from previous visits were reviewed. Progress Notes: 02/17/19 20:50 Code stroke called 02/17/19 20:52 EKG reviewed by me, shows: Normal sinus rhythm @ 71bpm RBBB LAHB Nonspecific STT wave changes. 02/17/19 21:40 CT Head Code stroke unresponsive/flaccid. TECHNIQUE: Multiple axial, coronal, sagittal CT images were obtained through the brain without IV contrast material. DLP 979.27. COMMENTS: Note is made of a large left thalamic acute hemorrhage extending to left marin radiata region which measures approximately 3 x 2 cm. There is large amount of blood in the left and right lateral ventricles as well as third ventricle, aque ducts of Sylvius and fourth ventricle. There is more blood in the left ventricle than right ventricle. There is surrounding vasogenic edema. There is approximately 7-8 mm midline shift to the right. There is generalized parenchymal atrophy. Chronic microvascular disease is seen. Nasal septum deformity is present. Both mastoid air cells are clear. The sinuses are clear. There is no evidence of ischemic stroke. There is no skull fracture. There is no lytic or blastic lesion. IMPRESSION: 1. Acute left thalamic bleed as above. There is surrounding vasogenic edema. Large amount of blood throughout the ventricular system. 2. 7-8 mm midline shift to the right. 3. Generalized parenchymal atrophy. 4. Chronic microvascular disease. 5. Findings reported to Dr. Chawla at 9:29 pm EST. 02/17/19 21:[address] Zazueta who reviewed CT, stating prognosis is poor, agrees with transfer to outside neurosurgical hospital. 02/17/19 21:[address] Buckner neurologist at [facility], who accepts transfer to neurosurgical service under Dr Gonzalez. Patient will be transferred to [facility]. 02/17/19 21:57 Case was discussed with patient's family who are present in the Emergency room. Family understands the grave prognosis for patient. 02/17/19 23:16 PROCEDURE: INTUBATION Performed by the emergency provider Time: 23:16 Consent: Discussion of the risks, benefits, and alternatives to the procedure, along with informed consent with family. Other discussions were precluded by the urgency of the procedure and the patient condition. Timeout: A timeout to verify the correct patient, procedure, and site was performed. Indication: airway protection; patient with cerebral hemorrhage Pre-oxygenation: [id number] Medications: Propofol. See MAR for details. ETT Size: 8.0 Confirmation: Cords directly visualized as tube passed, good bilateral breath sounds, positive CO2 detector color change, tube fogging, adequate chest rise, improving pulse oximetry reading, improved skin color, and absence of gastric sounds,. ETT Secured: The cuff was inflated and the tube was secured appropriately at a distance of 22cm at the lip. Post-Procedure: There were no immediate complications. CXR Confirmation: Yes - RAD Interpretation Radiology Orders: 02/17/19 20:54 HEAD W/O (CODE STROKE) [CT] Stat CHEST PORTABLE [RAD] Stat - Medication Orders Current Medication Orders: Sodium Chloride (Sodium Chloride 0.9%) 1,000 mls @ 100 mls/hr IV .Q10H RACQUEL NIHSS Scale (Rush) Time Performed: 20:55 - How Severe is the Stoke Baseline Level of Consciousness: 3=Unresponsive LOC to Questions: 2=Neither correct LOC to commands: 2=Neither correct Best Gaze: 0=Normal Visual: 0=No visual loss Facial: 0=Normal Motor Arm - Left: 4=No movement Motor Arm - Right: 4=No movement Motor Leg - Left: 4=No movement Motor Leg - Right: 4=No movement Limb Ataxia: 0=Absent Sensory: 2=Severe to total loss Best Language: 3=Mute Dysarthia: 2=Severe, near unintelligible or worse Extinction & Inattention (Neglect): 2=Profound neglect(does not recognize own hand or orients to one side) Score: 32 Risk Level: Severe Stroke Risk rTPA Inclusion/Exclusion - Refusal of Treatment Patient Refused Treatment: No - Inclusion Criteria for Altepase All of the below criteria for inclusion were reviewed: Yes Patient is 18 years or Older: Yes The Clinical Diagnosis of Ischemic Stroke That is Causing a Potentially Disabling Neurological Deficit: Yes Time of Onset is Well Established to be Less Than 270 Minute Before Treatment Would Begin: Yes Risk/Benefit Discussed With Patient/Family Member Present: Yes - Exclusion Criteria for Altepase Current Intracranial Hemorrhage: Yes Subarachnoid hemorrhage: Yes Active Internal Bleeding: No Recent (within 3 months) Intracranial or Intraspinal Surgery: No Presence of intracranial conditions that may increase the risk of bleeding: Not Applicable Bleeding Diathesis Including but not limited to: None Current Severe Uncontrolled Hypertension: Yes - Warning to TPA With Conditions Following Conditions Weighed Against Anticipated Benefit: Yes Condition: Any other condition in which bleeding constitutes a significant hazard Additional Condition (For 3-4.5 Hour Window): NIHSS Above 25 - Scribe Statement The provider has reviewed the documentation as recorded by the Janine Padilla Provider Scribe Attestation: All medical record entries made by the Scribe were at my direction and personally dictated by me. I have reviewed the chart and agree that the record accurately reflects my personal performance of the history, physical exam, medical decision making, and the department course for this patient. I have also personally directed, reviewed, and agree with the discharge instructions and disposition. Disposition/Present on Arrival - Present on Arrival Any Indicators Present on Arrival: No History of DVT/PE: Yes History of Uncontrolled Diabetes: No Urinary Catheter: No History of Decub. Ulcer: No History Surgical Site Infection Following: None - Disposition Have Diagnosis and Disposition been Completed?: Yes Diagnosis: Cerebral hemorrhage Disposition: Trans to Other Acute Care Hosp Disposition Time: 21:55 Patient Problems: Current Active Problems Problem Status Onset Cerebral hemorrhage Acute Condition: CRITICAL
[2019-02-17 21:19] LABS: ALB/GLOB RATIO 1.3 (1.1-1.8); ALBUMIN 4.2 g/dL (3.0-4.8); ALT/SGPT 25 U/L (7-56); AST/SGOT 33 U/L (17-59); BLOOD UREA NITROGEN 14 mg/dL (7-21); CALCIUM 9.4 mg/dL (8.4-10.5); GFR NON-AFRICAN AMERICAN > 60; HDL CHOLESTEROL 47 mg/dL (29-60)
[2019-02-17 21:22] LABS: INR 1.21; PARTIAL THROMBOPLASTIN TIME 30.1 Seconds (26.9-38.3); PROTHROMBIN TIME 13.4 SECONDS (9.4-12.5)
[2019-02-17 21:30] LABS: LDL CHOLESTEROL 123 mg/dL (0-129); TROPONIN I < 0.01 ng/mL
[2019-02-17] MEDS ORDERED: Mannitol 12.5 gm/50 ml Inj IV ONE (21:39)
[2019-02-17] MEDS: Nicardipine 20 MG/200 ML 20 MG/200 ML BAG IV PRN ×3 (21:55→22:12)
[2019-02-17] MEDS ORDERED: MANNITOL 20% IV SCH (22:00)
[2019-02-17 22:05] VITALS: TEMP 97.6
[2019-02-17] MEDS ORDERED: Propofol 10 mg/ml Inj (20 ML) ONE (23:09)
[2019-02-17] MEDS: Propofol 10 mg/ml Inj (20 ML) IVP ONE ×2 (23:10→23:13)
[2019-02-17] MEDS ORDERED: Propofol 10 mg/ml Inj (20 ML) IVP ONE ×2 (23:13→23:14)
[2019-02-17] MEDS ORDERED: Propofol 10 mg/ml 1,000 MG/100 ML VIAL IV PRN (23:18)
[2019-02-17 23:28] VITALS: BP 128/72; O2SAT 100
[2019-02-17 23:53] VITALS: PULSE 74; RESP 17
--- NOTE | 2019-02-18 08:19 | CT ---
Date of service: 02/17/2019 PROCEDURE: CT HEAD WITHOUT CONTRAST. HISTORY: Code Stroke COMPARISON: None available. TECHNIQUE: Axial computed tomography images were obtained through the head/brain without intravenous contrast. Radiation dose: Total exam DLP = 979.27 mGy-cm. This CT exam was performed using one or more of the following dose reduction techniques: Automated exposure control, adjustment of the mA and/or kV according to patient size, and/or use of iterative reconstruction technique. FINDINGS: HEMORRHAGE: There is a large left thalamic bleed with extension into the ventricles. Blood is seen throughout the ventricular system. The thalamic hematoma measures 2 x 3.3 cm. BRAIN: There is no significant midline shift no atrophy or chronic microvascular ischemic changes. VENTRICLES: Unremarkable. No hydrocephalus. CALVARIUM: Unremarkable. PARANASAL SINUSES: Unremarkable as visualized. No significant inflammatory changes. MASTOID AIR CELLS: Unremarkable as visualized. No inflammatory changes. OTHER FINDINGS: The report concurs with the preliminary [facility] report IMPRESSION: There is a large left thalamic bleed with extension into the ventricles. Blood is seen throughout the ventricular system. The thalamic hematoma measures 2 x 3.3 cm.
--- NOTE | 2019-02-18 09:10 | RAD ---
Date of service: 02/17/2019 HISTORY: status port intubation COMPARISON: 02/17/2019 9:11 p.m. TECHNIQUE: 1 view obtained. FINDINGS: LUNGS: Linear scar/atelectasis at right base. No pneumonia. PLEURA: Slight blunting of left costophrenic angle may reflect pleural effusion. No right pleural effusion. No pneumothorax. CARDIOVASCULAR: There is atherosclerotic calcification of the thoracic aorta. Endotracheal tube tip approximately 9.1 cm above the tracheal antwan. Nasogastric tube extends to left quadrant of the abdomen. No pulmonary vascular congestion. Normal heart size. No congestive change. OSSEOUS STRUCTURES: No significant abnormalities. VISUALIZED UPPER ABDOMEN: Normal. OTHER FINDINGS: None. IMPRESSION: ET tube and NG tube are in grossly appropriate position.
--- NOTE | 2019-02-18 09:49 | RAD ---
Date of service: 02/17/2019 HISTORY: Code Stroke COMPARISON: No prior. TECHNIQUE: 1 view obtained. FINDINGS: LUNGS: No active pulmonary disease. PLEURA: No significant pleural effusion identified, no pneumothorax apparent. CARDIOVASCULAR: Aortic calcification Mild cardiomegaly no pulmonary vascular congestion. OSSEOUS STRUCTURES: No significant abnormalities. VISUALIZED UPPER ABDOMEN: Normal. OTHER FINDINGS: None. IMPRESSION: No active disease.
--- NOTE | 2019-02-18 11:38 | CARD ---
APPROVED REPORT Date of service: 02/17/2019 EKG Measurement Heart [id number] ME [id number] <Conclusion> Normal sinus rhythm Right bundle branch block Left anterior fascicular block Bifascicular block Voltage criteria for left ventricular hypertrophy Abnormal ECG
== END 2019-02-17 23:52 | disposition short-term general hospital (02) ==
LOC: ED 20:45
DX: I61.9 Nontraumatic intracerebral hemorrhage, unspecified (principal); I25.10 Atherosclerotic heart disease of native coronary artery without angina pectoris; I25.2 Old myocardial infarction; I10 Essential (primary) hypertension; Z95.5 Presence of coronary angioplasty implant and graft; Z87.891 Personal history of nicotine dependence
CPT/HCPCS: 31500; 70450; 71045; 80053; 80061; 83036; 84484; 85025; 85610; 85730; 86850; 86900; 93005; 96365; 96366; 99291; J2704